=== PATIENT | female | born 1960 | race Asian ===

== ENCOUNTER 2018-07-08 20:19 | Emergency (ER) | payer BC, SELFPAY ==
[2018-07-08 20:20] VITALS: BP 130/71; PULSE 67; RESP 18; TEMP 36.4; O2SAT 98; BMI 25.4
[2018-07-08 22:44] LABS: Absolute Lymphocyte Count 2.21 X10^3/ul (0.83-4.51); Absolute Neutrophil Count 5.9 X10^3/uL (2.0-7.7); Basophil# 0.02 X10^3/uL; Basophil% 0.2 % (0-1); Eosinophil# 0.08 X10^3/uL; Eosinophils% 0.9 % (0-5); Hemoglobin 14.1 g/dl (12.0-15.0); Lymphocyte # 2.21 X10^3/ul (4.0); Lymphocyte % 25.4 % (19-41); Mean Corp Hgb Conc 32.8 g/gl (32-36); Mean Corpuscular Hgb 29.7 pg (27.0-32.0); Mean Corpuscular Volume 90.7 fL (81-99); Mean Platelet Vol. 10.6 fl (6.2-12.0); Monocyte% 5.7 % (0-10); Neutrophil # 5.88 X10^3/uL (2.7-7.7); Neutrophil % 67.7 % (47-70); Platelet Count 247 K/mm3 (150-450); RBC Distribution Width SD 42.9 fl (35.1-43.9); Red Blood Count 4.74 M/mm3 (4.2-5.4); White Blood Count 8.7 K/mm3 (4.4-11.0)
[2018-07-08 22:45] LABS: POSITIVE COUNT NO; POSITIVE DIFFERENTIAL NO; POSITIVE MORPHOLOGY NO
[2018-07-08 22:57] LABS: Anion Gap 4 (5-15); BUN 9 mg/dL (7-18); BUN/Creat Ratio 10.6 RATIO (10-20); Calcium,Total 8.9 mg/dL (8.5-10.1); Chloride 105 mmol/L (98-107); Creatinine, Serum 0.85 mg/dL (0.55-1.02); EST Glomerular Filtration Rate 73 mL/min (>60); Est Glom Filt Rate - Afr Amer 88 mL/min (>60); Estimated Creatinine Clearance 64.24 ml/min; Glucose 122 mg/dL (74-106); Potassium 3.7 mmol/L (3.5-5.1); Sodium Level 138 mmol/L (136-145)
[2018-07-08 23:23] VITALS: BP 127/66; PULSE 61; RESP 20; O2SAT 98
[2018-07-08] MEDS: Ondansetron 4 MG/2 ML Vial IV (23:33)
[2018-07-08] MEDS: 0.9% Normal Saline 1,000 ML 999 ML IV (23:33)
[2018-07-09 00:09] LABS: Lipase 157 U/L (73-393)
[2018-07-09 00:13] LABS: AST(SGOT) 26 U/L (15-37); Alanine Aminotransfer ALT/SGPT 34 U/L (13-56); Albumin, Serum 4.3 g/dL (3.2-5.0); Alkaline Phosphatase 97 U/L (45-117); Bilirubin, Direct 0.18 mg/dL (0.00-0.30); Protein, Total 9.3 g/dL (6.4-8.2)
--- NOTE | 2018-07-09 00:23 | ED.DCSUM_ITS ---
- ER Visit Summary Date of Service: 07/09/18 Chief Complaint: Nausea and vomiting History of Present Illness: The patient is a 57 F who presents with nausea vomiting. Began last night. She vomited 3 times last evening. She began to vomit again this afternoon. She went to urgent care and was advised to be evaluated here in the emergency department. She complains of mild upper abdominal pain. No diarrhea. No fevers. Physical Examination: Afebrile vitals unremarkable No distress resting comfortably Moist mucous membranes Heart regular rate and rhythm Lungs are clear Abdomen soft nontender no guarding no rebound Alert Test Results: Labs unremarkable including CBC BMP hepatic function lipase. Emergency Department Course and Treatment: Laboratory studies unremarkable as above. She was treated here with IV fluids and Zofran. Resting comfortably on reevaluation. No further vomiting. She was given a referral to establish a primary care physician and also given a prescription for Zofran. She understands to return for new or worsening symptoms. Treatment Plan: [] Disposition: Discharge Impression: Vomiting This note was generated with [employer] dictation software. It may contain incorrect words, spelling, and punctuation that were not noted in review of the chart prior to signing ED Disposition - Plan for ED Patient: Referrals: Care Physician,No Primary [Primary Care Provider] -
--- NOTE | 2018-07-09 00:23 | ED.DEP ---
ED Disposition - Plan for ED Patient: Instructions: ED Nausea Vomiting Prescriptions: Ondansetron [Zofran Odt] 4 mg PO Q8H PRN PRN #10 tab PRN Reason: Nausea Referrals: Care Physician,No Primary [Primary Care Provider] - Jose Diamond MD [STAFF PHYSICIAN] -
[2018-07-09 00:34] VITALS: BP 96/54; PULSE 63; O2SAT 100
--- NOTE | 2018-07-09 00:36 | ED.RN ---
patient does not report any dizziness on standing. Her discharge BP was 96/54.
--- NOTE | 2018-07-09 00:41 | ED.RN ---
DR. FLOYD IS AWARE OF PATIENT'S BP OF 96/54 ON DISCHARGE WITHOUT ANY SYMPTOMS SO SHE IS FINE TO BE DISCHARGED.
== END 2018-07-09 00:42 | disposition home or self-care (01) ==
PROVIDERS: Emergency Provider Emergency Medicine
DX: R11.2 Nausea with vomiting, unspecified (principal)
CPT/HCPCS: 80048; 80076; 83690; 85025; 96361; 96374; 99283; J7030; A4216; J2405

== ENCOUNTER 2021-11-19 20:56 | Emergency (ER) | payer BC, SELFPAY ==
[2021-11-19 20:57] VITALS: BP 131/73; PULSE 92; RESP 18; TEMP 37.2; O2SAT 100; BMI 24.2
--- NOTE | 2021-11-19 23:38 | EDS_ITS ---
HPI History of Present Illness Chief Complaint: General Illness Informant: patient and family Narrative Narrative: Sent here in here by oncologist Dr. Damon for evaluation. Family is present. Patient history of breast cancer on chemotherapy. She had a fourth round of treatment November 03. Next treatment upcoming week. The week after this past treatment increasing swelling dry skin and peeling that cantu. There is swelling around the face also. She had this similar up with her third treatment however is less significant. No tongue swelling no trouble swallowing. No fevers. The last time used topical steroids that helped her symptoms and seen by her oncologist prior to her fourth treatment. She denies any other new medications. She is a diabetic. Glucose well controlled. Prior similar symptoms: Yes [facility] Medical History (Updated 11/19/21 @ 23:[address] Tim Islas DO) Breast cancer Home Medications ondansetron 4 mg disintegrating tablet 4 mg PO Q8H PRN PRN Nausea #10 tabs 07/09/18 [Rx Last Taken Unknown] prednisone 20 mg tablet 40 mg PO DAILY #14 tabs 11/19/21 [Rx Last Taken Unknown] prednisone 20 mg tablet 40 mg PO DAILY #14 tabs 11/19/21 [Rx Last Taken Unknown] prednisone 20 mg tablet 40 mg PO DAILY #14 tabs 11/20/21 [Rx Last Taken Unknown] Allergy/AdvReac Type Severity Reaction Status Date / Time No Known Allergies Allergy Verified 11/19/21 20:58 Social History Smoking Status: Never smoker [facility] ED Constitutional Constitutional ED: Denies chills, fever(s) or sweats Eyes Eyes: Denies change in vision ENT ENT ED: Denies dysphagia or sore throat Cardiovascular Cardiovascular: Denies chest pain, leg edema, palpitations or racing heartbeat Respiratory/Chest Respiratory/Chest: Denies cough, dyspnea or dyspnea on exertion Gastrointestinal Gastrointestinal: Denies abdominal pain, diarrhea, nausea or vomiting Genitourinary Genitourinary ED: Denies dysuria, hematuria or urinary frequency Musculoskeletal Musculoskeletal: Denies back pain, extremity pain or neck pain Integumentary Reports other Details: Swelling and cracking of skin of arms face and feet. ; Denies rash or wounds Neurologic Neurologic: Denies headache(s), paresthesias or weakness EXAM Physical Exam Const Vital Signs: 11/19/21 20:57 Temperature 99 F Temperature Source Temporal Pulse Rate 92 Respiratory Rate 18 Blood Pressure 131/73 H Blood Pressure Mean 92 Pulse Ox 100 Oxygen Delivery Method Room Air Positive well nourished and well developed General Appearance ED: well developed and NAD HEENT Reports moist mucous membranes HEENT Narrative: There is facial swelling the maxillary area, there is dry skin with peeling. There is no erythema. No oral mucosal lesions. Airway patent. No lip or tongue swelling. normocephalic and atraumatic Eyes PERRL, EOMs intact bilaterally and conjunctivae normal Eyes Narrative: No erythema of the sclera. General Eye ED: Yes normal appearance of both eyes Neck no lymphadenopathy and supple General: Negative for tenderness Chest Wall Chest: Negative for tenderness Resp normal respiratory effort and normal air movement Effort and Inspection: symmetric chest movement; Negative for respiratory distress Cardio regular rate, regular rhythm and no murmurs Peripheral Pulses: pulses 2+ throughout GI normal to inspection, nondistended, normoactive bowel sounds and non-tender Palpation: Negative for guarding or rebound tenderness present Back/Spine no CVA tenderness and no thoracic nor lumbar tenderness Extremity normal to inspection General Extremety ED: Negative for edema or tenderness General Extremity: Negative for edema Neuro oriented x3 and no sensory deficits noted Sensorium / Orientation: awake and alert Skin Skin Narrative: Dry scaly skin bilateral hands up to forearms. There is abrasion on the right foot. There is no erythema, nontender. No drainage. MDM MDM MDM Narrative Medical decision making narrative: Patient nontoxic vital signs stable. With her history concerns for side effects of her chemotherapy. There is no signs of anaphylaxis. There is no oral lesions. Blood glucose 104. I discussed with her oncologist Dr. Damon, who would like her on oral steroids. Prescription for 7 days. Family updated. They will keep their follow-up as an outpatient. All questions were answered. Discharge Plan Triage Chief Complaint: General Illness ED Provider: Tim Islas Dx/Rx/DC Orders Clinical Impression: Dermatitis, Chemotherapy adverse reaction, History of breast cancer, History of diabetes mellitus Prescriptions: New prednisone 20 mg tablet 40 mg PO DAILY Qty: 14 0RF prednisone 20 mg tablet 40 mg PO DAILY Qty: 14 0RF prednisone 20 mg tablet 40 mg PO DAILY Qty: 14 0RF No Action ondansetron 4 MG tablet 4 mg PO Q8H PRN PRN (Reason: Nausea) Qty: 10 0RF Primary Care Provider: Mariya Penn Referrals: Mariya Penn MD [Primary Care Provider] - Jovan Damon MD [Med Staff - Active Staff] - Keep Mitchell appointment Activity Restrictions/Additional Instructions: Take steroid as prescribed. Your glucose will be elevated secondary to this. Blood glucose in the ED is 104. Continue lotions for dry skin. Follow-up with Dr. Damon as scheduled. Disposition Disposition: Home, Self Care Discharge Date/Time: 11/20/21 00:33
== END 2021-11-20 00:33 | disposition home or self-care (01) ==
PROVIDERS: Emergency Provider Emergency Medicine; PCP Internal Medicine; Visit Provider Emergency Medicine
DX: L27.0 Generalized skin eruption due to drugs and medicaments taken internally (principal); C50.919 Malignant neoplasm of unspecified site of unspecified female breast; E11.9 Type 2 diabetes mellitus without complications; T45.1X5A Adverse effect of antineoplastic and immunosuppressive drugs, initial encounter; Z79.899 Other long term (current) drug therapy
CPT/HCPCS: 99282

== ENCOUNTER 2021-12-08 11:15 | Inpatient (IN) | payer BC, SELFPAY ==
[2021-12-08 11:17] VITALS: BP 123/75; PULSE 85; RESP 17; TEMP 37.1; O2SAT 100; BMI 23.3
--- NOTE | 2021-12-08 11:47 | EDS_ITS ---
HPI <BRYCE Lim - Last Filed: 12/08/21 13:53> History of Present Illness Chief Complaint: Nausea/Vomiting Narrative Narrative: 61-year-old female with history of metastatic right-sided breast cancer currently receiving chemotherapy, last dose of chemotherapy was November 24, 2021. Patient after receiving chemotherapy has redness of the hands, face, sloughing off of skin looking almost like a burn. Patient was seen here October 09 after chemotherapy and was placed on prednisone and sent home to follow-up with Dr. Shea her oncologist. Patient had similar issues after this last chemotherapy, patient has redness to the face, neck has having chills, she did see her oncologist for this, this was 2 days ago and she was placed on doxycycline as well as eyedrops. She was post to have a follow-up appointment today however due to the increased redness, drainage from the right side of her neck, worsening skin redness, worsening eye pain, redness to her eyes she was told to come to the emergency department for evaluation. Patient has no fevers however does have chills, also complains of full body itching. The patient is concerned that the oral antibiotics are not working. [facility] <BRYCE Lim - Last Filed: 12/08/21 13:53> [facility] Medical History (Updated 12/08/21 @ 14:[address] Héctor Oliveira MD) Breast cancer Home Medications doxycycline hyclate 100 mg capsule 100 mg PO BID 12/08/21 [History Last Taken 12/08/21] metformin 500 mg tablet,extended release 24 hr 500 mg PO DAILY dm 12/08/21 [History Last Taken 12/08/21] polymyxin B sulfate 10,000 unit-trimethoprim 1 mg/mL eye drops 1 drp EACH EYE 4X/DAY 12/08/21 [History Last Taken 12/08/21] potassium chloride 20 mEq tablet,extended release(part/cryst) (Klor-Con M) 20 meq PO DAILY supplement 12/08/21 [History Last Taken 12/07/21] tramadol 50 mg tablet 50 mg PO BID PRN Pain 12/08/21 [History Last Taken 12/07/21] Allergy/AdvReac Type Severity Reaction Status Date / Time No Known Allergies Allergy Verified 12/08/21 11:17 Social History Smoking Status: Never smoker ROS <BRYCE Lim - Last Filed: 12/08/21 13:53> ROS ED ROS Narrative Constitutional: Negative for fever, weight loss, weakness. Positive for chills Eyes: Negative for vision loss, vision change, double vision. Positive for eye swelling, eye redness ENT: Negative for any ear pain, congestion. Positive for throat pain Cardiovascular: Negative for any chest pain, tightness, palpitations Respiratory: Negative for any cough, sputum production, hemoptysis, dyspnea, dyspnea on exertion, orthopnea Gastrointestinal: Negative for any abdominal pain, vomiting, diarrhea, constipation, blood in stool, blood in vomit. Positive for nausea : Negative for any urinary frequency, dysuria, retention, blood in urine Muscle skeletal: Negative for any muscle joint pain, stiffness, myalgias, arthralgias, neck pain, back pain Neurological: Negative for any headache, syncope, numbness or tingling, dizziness Skin: Negative for any lumps, itching, abrasions, lacerations. Positive for redness to the face, redness to the neck, skin peeling to bilateral hands Psychiatric: Negative for any depression, anxiety, stress, suicidal ideation, homicidal ideation Hematologic: Negative for any easy bruising, excessive bruising, easy bleeding Allergies: Negative for any eczema, hives, rash EXAM <BRYCE Lim - Last Filed: 12/08/21 13:53> Physical Exam Narrative Exam Narrative: Vital signs reviewed. Patient alert orient x4 HEET: Head normocephalic atraumatic, TMs clear bilaterally. Posterior pharynx is clear, moist mucous membranes. Nares clear bilaterally. Pupils are equal round react to light, conjunctiva are injected, erythemic, small lesion to the left eyelid Neck: The anterior neck is red, there is abrasion to the right side of her neck, this is what being treated for cellulitis, it is red, no abscess formation. No signs of meningismus, negative jolt sign. Cardiac: Regular rate and rhythm no murmurs gallops or rubs, equal peripheral pulses bilaterally. Respiratory: Lungs clear to auscultation bilaterally. No chest tenderness. Abdomen: Soft, nontender, nondistended. No abdominal bruit or pulsatile masses. No hepatosplenomegaly Extremities: No peripheral edema, no signs of gross trauma or deformity. Active full range of motion of all extremities. Patient has some skin peeling to bilateral hands which has been ongoing for several weeks Neuro: Cranial nerves II through XII intact, no focal neurological deficits. Skin: Clean dry and intact with no rash, purpura, petechiae, vesicles or pustules. Backs/flank: No CVA tenderness, no midline spinal tenderness, no deformity. Psych: Normal mood and affect. No SI, HI or acute psychosis. Const Vital Signs: 12/08/21 11:17 Temperature 98.8 F Temperature Source Oral Pulse Rate 85 Respiratory Rate 17 Blood Pressure 123/75 H Blood Pressure Mean 91 Pulse Ox 100 Oxygen Delivery Method Room Air <Dr. Héctor Oliveira MD - Last Filed: 12/08/21 14:02> Physical Exam Const Vital Signs: 12/08/21 11:17 Temperature 98.8 F Temperature Source Oral Pulse Rate 85 Respiratory Rate 17 Blood Pressure 123/75 H Blood Pressure Mean 91 Pulse Ox 100 Oxygen Delivery Method Room Air MDM <BRYCE Lim - Last Filed: 12/08/21 13:53> MDM Lab Data Labs: Laboratory Results - last 24 hr 12/08/21 12/08/21 12/08/21 11:57 11:57 11:57 WBC 20.6 H RBC 3.23 L Hgb 10.5 L Hct 31.2 L MCV 96.6 MCH 32.5 H MCHC 33.7 RDW Std Deviation 55.9 H RDW Coeff of Sanam 15.9 H Plt Count 178 MPV 10.2 Immature Gran % (Auto) 2.600 H Neut % (Auto) 85.6 H Lymph % (Auto) 7.2 L [place] % (Auto) 4.1 Eos % (Auto) 0.1 Baso % (Auto) 0.4 Absolute Neuts (auto) 17.6 H Absolute Lymphs (auto) 1.49 Nucleated RBC % 0.1 Sodium 134 L Potassium 2.6 L* Chloride 95 L Carbon Dioxide 25.0 Anion Gap 14 BUN 5 L Creatinine 0.57 Estim Creat Clear Calc 83.57 Est GFR (MDRD) Af Amer 137 Est GFR (MDRD) Non-Af 113 BUN/Creatinine Ratio 8.7 L Glucose 132 H Lactic Acid 1.0 Calcium 8.3 L Cortisol 12/08/21 12:10 WBC RBC Hgb Hct MCV MCH MCHC RDW Std Deviation RDW Coeff of Sanam Plt Count MPV Immature Gran % (Auto) Neut % (Auto) Lymph % (Auto) [place] % (Auto) Eos % (Auto) Baso % (Auto) Absolute Neuts (auto) Absolute Lymphs (auto) Nucleated RBC % Sodium Potassium Chloride Carbon Dioxide Anion Gap BUN Creatinine Estim Creat Clear Calc Est GFR (MDRD) Af Amer Est GFR (MDRD) Non-Af BUN/Creatinine Ratio Glucose Lactic Acid Calcium Cortisol 31.30 H Treatment and Re-Evaluation Narrative: Patient arrives in no respiratory distress, patient does appear slightly uncomfortable secondary to redness to the face, neck, bilateral hands. Patient did receive a septic work-up secondary to chemotherapy for metastatic right- sided breast cancer. She was instructed to come in by Dr. shea, patient CBC shows a leukocytosis of white blood count 20.6, I did contact the patient's oncologist, he does state that this is abnormal, he does give something for the white blood cells to increase however this should have tapered down, and not been this high. Patient was started on Unasyn, vancomycin post blood cultures. Patient will need to be admitted to hospital. Patient did receive septic work-up, again patient's white blood count was elevated 20.6, patient's chemistries show a panic low potassium at 2.6, this will be replaced orally. Patient's cortisol level was 31.3. Patient was started on IV vancomycin, IV Unasyn for her cellulitis. Patient will be admitted to [facility] for [facility]. <Dr. Héctor Oliveira MD - Last Filed: 12/08/21 14:02> [facility] Narrative Medical decision making narrative: I have personally performed a face to face assessment of the patient and have reviewed the NICANOR Note. I performed a substantive portion of the visit including all aspects of the following. My valverde findings include: History is is remarkable for metastatic breast cancer. Patient has had adverse reaction to the chemotherapy. Her last dose of chemotherapy was November 24. She was seen several days ago by Dr. Jovan Shea who prescribed doxycycline for cellulitis of the face and neck. In spite of 2 days of doxycycline she has not gotten better. She does report chills. She denies documented fever. There is been no change in voice. There is no drooling. She also has rash on her hands and feet. There was no concern for infection. Family and Dr. Shea were concerned because of significant facial swelling. She has been on steroids recently. There is no history of Ceasar's disease. Exam is patient has shah face appearance. There is skin breakdown with warmth erythema of the face and neck. Trachea is midline. There is no inspiratory str idor. There is no dysphonia. There is no drooling. She has no trismus. Heart is regular without murmur, gallop or rub. Lungs are clear to auscultation. Abdomen is soft nontender. Patient does have rash involving the hands and feet. These do not appear infected. Medical Decision Making sepsis work-up was undertaken for failed outpatient therapy of cellulitis with doxycycline. White count is elevated 20.6 thousand with shift. Electrolyte panel is remarkable for potassium of 2.6. Lactate normal. Cortisol level is 31.3. This is high and may represent Ceasar's disease. Other additions or changes: [None] Lab Data Labs: Laboratory Results - last 24 hr 12/08/21 12/08/21 12/08/21 11:57 11:57 11:57 WBC 20.6 H RBC 3.23 L Hgb 10.5 L Hct 31.2 L MCV 96.6 MCH 32.5 H MCHC 33.7 RDW Std Deviation 55.9 H RDW Coeff of Sanam 15.9 H Plt Count 178 MPV 10.2 Immature Gran % (Auto) 2.600 H Neut % (Auto) 85.6 H Lymph % (Auto) 7.2 L [place] % (Auto) 4.1 Eos % (Auto) 0.1 Baso % (Auto) 0.4 Absolute Neuts (auto) 17.6 H Absolute Lymphs (auto) 1.49 Nucleated RBC % 0.1 Sodium 134 L Potassium 2.6 L* Chloride 95 L Carbon Dioxide 25.0 Anion Gap 14 BUN 5 L Creatinine 0.57 Estim Creat Clear Calc 83.57 Est GFR (MDRD) Af Amer 137 Est GFR (MDRD) Non-Af 113 BUN/Creatinine Ratio 8.7 L Glucose 132 H Lactic Acid 1.0 Calcium 8.3 L Cortisol 12/08/21 12:10 WBC RBC Hgb Hct MCV MCH MCHC RDW Std Deviation RDW Coeff of Sanam Plt Count MPV Immature Gran % (Auto) Neut % (Auto) Lymph % (Auto) [place] % (Auto) Eos % (Auto) Baso % (Auto) Absolute Neuts (auto) Absolute Lymphs (auto) Nucleated RBC % Sodium Potassium Chloride Carbon Dioxide Anion Gap BUN Creatinine Estim Creat Clear Calc Est GFR (MDRD) Af Amer Est GFR (MDRD) Non-Af BUN/Creatinine Ratio Glucose Lactic Acid Calcium Cortisol 31.30 H Discharge Plan Dx/Rx/DC Orders Clinical Impression: Cellulitis diffuse, face, Adverse effect of chemotherapy, Leukocytosis, Malignant neoplasm metastatic to breast, Cellulitis of neck, Elevated cortisol level, Metastatic breast cancer Disposition Disposition: Acute Care Hospital [facility]
[2021-12-08 12:06] LABS: Absolute Lymphocyte Count 1.49 X10^3/uL (0.83-4.51); Absolute Neutrophil Count 17.6 X10^3/uL (2.0-7.7); Basophil# 0.08 X10^3/uL; Basophil% 0.4 % (0-1); Eosinophil# 0.02 X10^3/uL; Eosinophils% 0.1 % (0-5); Hematocrit 31.2 % (37-47); Hemoglobin 10.5 g/dL (12.0-15.0); Lymphocyte # 1.49 X10^3/ul (0.83-4.51); Lymphocyte % 7.2 % (19-41); Mean Corp Hgb Conc 33.7 g/dL (32-36); Mean Corpuscular Hgb 32.5 pg (27.0-32.0); Mean Corpuscular Volume 96.6 fL (81-99); Mean Platelet Vol. 10.2 fl (6.2-12.0); Monocyte# 0.85 X10^3/uL; Monocyte% 4.1 % (0-10); NRBC Flagged by Analyzer 0.1 % (0-5); Neutrophil # 17.62 X10^3/uL (2.7-7.7); Neutrophil % 85.6 % (47-70); Platelet Count 178 K/mm3 (150-450); RBC Distribution Width CV 15.9 % (11.6-14.6); RBC Distribution Width SD 55.9 fl (35.1-43.9); Red Blood Count 3.23 M/mm3 (4.2-5.4); White Blood Count 20.6 K/mm3 (4.4-11.0)
[2021-12-08] MEDS: 0.9% Normal Saline 1,000 ML 500 ML IV (12:11)
[2021-12-08] MEDS: Ondansetron 4 MG/2 ML Vial IV (12:11)
[2021-12-08 12:45] LABS: Anion Gap 14 (5-15); BUN 5 mg/dL (7-18); BUN/Creat Ratio 8.7 RATIO (10-20); Calcium,Total 8.3 mg/dL (8.5-10.1); Chloride 95 mmol/L (98-107); Creatinine, Serum 0.57 mg/dL (0.55-1.02); EST Glomerular Filtration Rate 113 mL/min (>60); Est Glom Filt Rate - Afr Amer 137 mL/min (>60); Estimated Creatinine Clearance 83.57 ml/min; Glucose 132 mg/dL (74-106); Potassium 2.6 mmol/L (3.5-5.1); Sodium Level 134 mmol/L (136-145)
[2021-12-08] MEDS: Potassium Chloride Oral Tablet 20 MEQ 40 MEQ PO (14:05)
--- NOTE | 2021-12-08 14:05 | NURSING ---
116 TOM CELLULITIS NECK, FACE, METS BREAST CA, RT
--- NOTE | 2021-12-08 14:31 | HP.PCM.HOS_ITS ---
HPI - General General Date of Admission: 12/08/21 Date of Service: 12/08/21 Chief Complaint: Nausea, vomiting, chills, mild throat pain. CA breast status post chemo HPI Narrative JASMIN MILLARD, is a 61 F with history of CA right breast, stage III on neoadjuvant chemotherapy, fifth dose came to ED for skin rash of face, hands, itching asso ciated with redness looks like burn. Patient also has numbness and tingling of hand and finger like neuropathic symptoms. Skin reaction started between third and fourth dose of chemotherapy at the end of September as per the daughter. This was controlled with intermittent Solu-Medrol given as an outpatient by oncologist Dr. Damon. Patient also has chills with fever. She vomited 3-4 times mainly gastric type. She does not have difficulty in swallowing food or saliva but he states sometimes she feels heartburn/stinging sensation in throat. His skin over the face is thickened with edema, redness and signs of areas of excoriation and peeling off. She lost here for scalp, eyebrows and eyelashes. There is minimal drainage from the skin excoriation in the upper neck. Patient was started on doxycycline about 2 days ago as an outpatient but seems is not working therefore came to ED. In ED, vitals are normal range. Temperature 98.8 ?F. Labs discussed in detail in assessment plan. She is high leukocytosis with left shift 85% neutrophils. Severe hypokalemia. Serum cortisol 31.3. Past medical history: CLL treated breast, stage III on neoadjuvant chemotherapy, diabetes mellitus type 2. Denies chronic heart disease, chronic lung disease and stroke or peripheral arterial disease. History taken from patient and her daughter Bridget near the bedside. The patient has limited Spanish proficiency [facility] Medical History Breast cancer Home Medications doxycycline hyclate 100 mg capsule 100 mg PO BID 12/08/21 [History Last Taken 12/08/21] metformin 500 mg tablet,extended release 24 hr 500 mg PO DAILY dm 12/08/21 [History Last Taken 12/08/21] polymyxin B sulfate 10,000 unit-trimethoprim 1 mg/mL eye drops 1 drp EACH EYE 4X/DAY 12/08/21 [History Last Taken 12/08/21] potassium chloride 20 mEq tablet,extended release(part/cryst) (Klor-Con M) 20 meq PO DAILY supplement 12/08/21 [History Last Taken 12/07/21] tramadol 50 mg tablet 50 mg PO BID PRN Pain 12/08/21 [History Last Taken 12/07/21] Allergy/AdvReac Type Severity Reaction Status Date / Time No Known Allergies Allergy Verified 12/08/21 11:17 Social History Smoking Status: Never smoker ROS ROS Narrative Constitutional: Reports fatigue and weakness. Chills with fever. HEENT: Heartburn. Burning sensation in throat sometimes. Reports systems reviewed and no addt'l complaints, except as documented Respiratory/Chest: Denies chest pain, shortness of breath at rest or with exertion Gastrointestinal: As mentioned in HPI Genitourinary: Denies burning urination or new urinary tract symptoms Musculoskeletal: Denies joint pain and limited range of motion Neurologic: Numbness and tingling sensation over fingers and toes. No weakness. Denies seizure-like activity skin: Rash as described in HPI Endocrinology: Diabetes mellitus type 2 reports systems reviewed and no addt'l complaints, except as documented Hematologic/Lymphatic: Reports systems reviewed and no addt'l complaints, except as documented Rest 14 ROS are negative except as mentioned in HPI Vital Signs Vital Signs Vital Signs: 12/08/21 11:17 Temperature 98.8 F Temperature Source Oral Pulse Rate 85 Respiratory Rate 17 Blood Pressure 123/75 H Blood Pressure Mean 91 Pulse Ox 100 Oxygen Delivery Method Room Air Weight Weight: 115 lb 8.356 oz Body Mass Index (BMI) 23.3 Physical Exam Narrative General: Alert, Oriented x3, Cooperative HEENT: Atraumatic, PERRLA, EOMI, Normocephalic Oral: No Gingival or Mucosal Lesions/ Ulcerations Neck: Supple, No JVD, Negative Carotid Bruits Lungs: Air entry diminished in bilateral lung bases. No crepitation/rhonchi Cardiovascular: Regular rate, Regular Rhythm, Normal S1, Normal S2, No murmurs Abdomen: Bowel Sounds Present, Soft, Non Tender, Non-Distended : No renal angle tenderness. No suprapubic tenderness. Extremities: No edema, Capillary Refill Less than 3 Seconds Skin: Maculopapular lesions on face, neck with thickened skin with accentuated fissures, subcutaneous edema and excoriation suggestive of lichenification, suggestive of secondary bacterial infection on chronic inflammation. Excoriation of his skin with minimal serous discharge. Alopecia with loss of hair of eyelashes and eyebrows. Musculoskeletal: No Tenderness to Palpation of Joints or Extremities Neurological: Cranial nerves II-XII grossly intact, neuropathic pain/paresthesia of legs. Psych/Mental Status: Flat affect. Results Lab / Micro Data Result Diagrams: 12/08/21 11:57 12/08/21 11:57 Labs: Laboratory Results - last 24 hr 12/08/21 11:57: WBC 20.6 H, RBC 3.23 L, Hgb 10.5 L, Hct 31.2 L, MCV 96.6, MCH 32.5 H, MCHC 33.7, RDW Std Deviation 55.9 H, RDW Coeff of Sanam 15.9 H, Plt Count 178, MPV 10.2, Immature Gran % (Auto) 2.600 H, Neut % (Auto) 85.6 H, Lymph % (Auto) 7.2 L, [place] % (Auto) 4.1, Eos % (Auto) 0.1, Baso % (Auto) 0.4, Absolute Neuts (auto) 17.6 H, Absolute Lymphs (auto) 1.49, Nucleated RBC % 0.1 12/08/21 11:57: Sodium 134 L, Potassium 2.6 L*, Chloride 95 L, Carbon Dioxide 25.0, Anion Gap 14, BUN 5 L, Creatinine 0.57, Estim Creat Clear Calc 83.57, Est GFR (MDRD) Af Amer 137, Est GFR (MDRD) Non-Af 113, BUN/Creatinine Ratio 8.7 L, Glucose 132 H, Calcium 8.3 L 12/08/21 11:57: Lactic Acid 1.0 12/08/21 12:10: Cortisol 31.30 H Assessment & Plan Assessment/Plan (1) Cellulitis diffuse, face: (2) Adverse effect of chemotherapy: PLAN: Plan This 61-year-old female admitted for the concern of worsening of skin rash with secondary bacterial infection. 1. Complicated skin and soft tissue infection of face, neck and upper extremity due to secondary bacterial infection/cellulitis: Patient is being admitted on monitored bed. Started on IV vancomycin and Zosyn. MRSA skin culture. Blood cultures x2 ordered. ID consulted for further opinion. 2. Chemotherapeutic skin, mucositis and neuropathic adverse effect after neoadjuvant chemotherapy: Morphology of rash like lichenification, excoriation and peeling off seems chronic more than 1 month. Daughter also corroborates that rash started at the end of September with getting better with steroid but did not get resolved completely. Started on IV Solu-Medrol 40 mg every 8 hourly. BMX for symptomatic relief. 3. GERD probably due to chemotherapeutic side effect: Protonix 40 mg IV 1 dose and then oral from tomorrow AM. 4. Hypovolemia/dehydration, severe hypokalemia and hypomagnesemia: IV fluid normal saline. IV KCl and IV magnesium sulfate replacement ordered. 5. Locally advanced right CA breast, stage III: I personally discussed with patient is oncologist Dr Damon. She has fifth round of chemotherapy on November 24. She had Perjeta and Taxotere recently. Prior to that she had carboplatin but was discontinued due to severe skin adverse effect. This chemotherapeutic agents are known to have adverse effect of dermatitis, rash, neuropathic adverse effect. 6. Diabetes mellitus type 2: Accu-Chek ACH coverage Humalog sliding scale. Patient glucose is expected to go up on IV Solu-Medrol. Titrate Dose of Insulin Accordingly. DVT prophylaxis: Lovenox 40 mg subcu daily and bilateral SCDs Living will/advanced directive/end of life care: Patient does have living will or advanced directive as per the daughter. She is next to kin. After discussion of benefits/risks procedures involved with full code, DNR CC arrest and DNR CC, the patient and her daughter opted for full code. Patient and her daughter does want artificial life support including intubation, tube feed, ventilator and/chest compression, central venous catheter, vasopressor and DC shock if needed Total time spent in [id number] encounter in discussion of advanced directive 16 minutes.
[2021-12-08 14:46] LABS: AST(SGOT) 33 U/L (15-37); Alanine Aminotransfer ALT/SGPT 41 U/L (13-56); Albumin, Serum 3.2 g/dL (3.2-5.0); Alkaline Phosphatase 116 U/L (45-117); Bilirubin, Direct 0.27 mg/dL (0.00-0.30); Globulin 3.2 g/dL (2.2-4.2); Phosphorus 3.1 mg/dL (2.5-4.9); Protein, Total 6.4 g/dL (6.4-8.2)
[2021-12-08 15:19] VITALS: BMI 23.4
--- NOTE | 2021-12-08 15:36 | PCM.RX.CS ---
Consult Pharmacy has been consulted to manage selected antiobiotic: Vancomycin Type of Consult: New start Suspected Infection: Skin/Soft tissue Prior Doses of Antibiotics Received/Current Regimen: Receivd 1250mg iv x 1 as loading dose in ER. Labs: Sodium 134 mmol/L (136-145) L 12/08/21 11:57 Potassium 2.6 mmol/L (3.5-5.1) L* 12/08/21 11:57 Chloride 95 mmol/L (98-107) L 12/08/21 11:57 Carbon Dioxide 25.0 mmol/L (21.0-32.0) 12/08/21 11:57 Anion Gap 14 (5-15) 12/08/21 11:57 BUN 5 mg/dL (7-18) L 12/08/21 11:57 Creatinine 0.57 mg/dL (0.55-1.02) 12/08/21 11:57 Est GFR (MDRD) Af Amer 137 mL/min (>60) 12/08/21 11:57 Est GFR (MDRD) Non-Af 113 mL/min (>60) 12/08/21 11:57 BUN/Creatinine Ratio 8.7 RATIO (10-20) L 12/08/21 11:57 Glucose 132 mg/dL (74-106) H 12/08/21 11:57 Weight used for dosin.6 kg Estimated Creatinine Clearance: 71 ml/min Goal Trough: 15-20 mcg/mL Pharmacy Plan for Drug Dosing: A calculated CrCl determined to be ~71ml/min using adjusted body weight of 46.7kg. Dosing of 750mg iv q12h will be ordered to start 12hrs after loading dose. Trough level ordered for before 4th total dose on 12.10.21. Pharmacy Service will continue to monitor and adjust dosing as required. Follow-Up Labs: Trough Vancomycin - 12.10.21@0130 before 0200 dose
[2021-12-08] MEDS: Magnesium Sulfate 4gm/100mL 4 GM/100 ML IV.SOLN. IV (16:23)
[2021-12-08 16:30] VITALS: BP 108/56; PULSE 84; RESP 18; TEMP 37.6; O2SAT 97
[2021-12-08] MEDS: Menthol/Lanolin/Calamine/Znox 113 GM Tube 1 APPLIC TOPICAL ×2 (16:46→21:49)
[2021-12-08] MEDS: Enoxaparin 40 MG/0.4 ML Syringe SC (16:46)
[2021-12-08] MEDS: 0.9% Saline Lock 10 ML Syringe IV ×2 (16:47→22:48)
[2021-12-08 17:45] LABS: Bedside Glucose 99 mg/dL (74-106)
[2021-12-08] MEDS: Potassium Chloride 10mEq/100mL 10 MEQ/100 ML IV.SOLN. 100 MEQ IV BOLUS ×4 (18:02→21:41)
[2021-12-08 19:26] LABS: M R Staph aureus DNA By PCR Negative (Negative); Probe Check PASS; Specimen Processing Control PASS; Staph aureus DNA By PCR POSITIVE (Negative)
[2021-12-08] MEDS: oxyCODONE 5 MG Tablet PO (19:34)
[2021-12-08 19:50] LABS: M R Staph aureus DNA By PCR Negative (Negative); Probe Check PASS; Specimen Processing Control PASS
[2021-12-08 21:33] VITALS: BP 104/54; PULSE 76; RESP 18; TEMP 36.8; O2SAT 99
[2021-12-08] MEDS: POLYMYXIN B SULF/TRIMETHOPRIM 10 ML DROPS OPHTHALMIC (21:48)
[2021-12-08 22:20] LABS: Bedside Glucose 156 mg/dL (74-106)
[2021-12-08] MEDS: 0.9% Normal Saline 1,000 ML 100 ML IV (22:52)
[2021-12-09 03:16] VITALS: BP 91/60; PULSE 69; RESP 20; TEMP 36.6; O2SAT 98
[2021-12-09 05:50] LABS: Absolute Lymphocyte Count 1.05 X10^3/uL (0.83-4.51); Basophil# 0.04 X10^3/uL; Basophil% 0.2 % (0-1); Hematocrit 28.1 % (37-47); Hemoglobin 9.5 g/dL (12.0-15.0); Lymphocyte # 1.05 X10^3/ul (0.83-4.51); Lymphocyte % 4.6 % (19-41); Mean Corp Hgb Conc 33.8 g/dL (32-36); Mean Corpuscular Hgb 33.3 pg (27.0-32.0); Mean Corpuscular Volume 98.6 fL (81-99); Mean Platelet Vol. 10.2 fl (6.2-12.0); Monocyte# 0.23 X10^3/uL; NRBC Flagged by Analyzer 0 % (0-5); Neutrophil # 21.03 X10^3/uL (2.7-7.7); Neutrophil % 91.6 % (47-70); POSITIVE DIFFERENTIAL YES; Platelet Count 165 K/mm3 (150-450); RBC Distribution Width CV 16.1 % (11.6-14.6); RBC Distribution Width SD 58.3 fl (35.1-43.9); Red Blood Count 2.85 M/mm3 (4.2-5.4)
[2021-12-09 06:09] LABS: Differential Indicated SCAN CRITERIA MET
[2021-12-09 06:13] VITALS: BP 86/54; PULSE 73; RESP 20; TEMP 36.8; O2SAT 97
[2021-12-09] MEDS: Menthol/Lanolin/Calamine/Znox 113 GM Tube 1 APPLIC TOPICAL ×2 (06:22→14:51)
[2021-12-09 06:24] LABS: Anion Gap 7 (5-15); BUN 3 mg/dL (7-18); BUN/Creat Ratio 5.7 RATIO (10-20); Calcium,Total 6.9 mg/dL (8.5-10.1); Chloride 106 mmol/L (98-107); Creatinine, Serum 0.53 mg/dL (0.55-1.02); EST Glomerular Filtration Rate 125 mL/min (>60); Est Glom Filt Rate - Afr Amer 151 mL/min (>60); Estimated Creatinine Clearance 91.07 ml/min; Glucose 137 mg/dL (74-106); Potassium 3.5 mmol/L (3.5-5.1); Sodium Level 139 mmol/L (136-145); Thyroid Stim Hormone (TSH) 0.66 uIU/mL (0.358-3.74)
[2021-12-09] MEDS: 0.9% Saline Lock 10 ML Syringe IV ×2 (06:24→15:45)
[2021-12-09 06:30] LABS: Differential Comment SCANNED
[2021-12-09 07:15] LABS: Bedside Glucose 126 mg/dL (74-106)
[2021-12-09 07:35] VITALS: BP 92/54; PULSE 77; RESP 16; TEMP 36.6; O2SAT 99
[2021-12-09] MEDS: 0.9% Normal Saline 1,000 ML 100 ML IV (07:36)
[2021-12-09 08:17] VITALS: O2SAT 93
[2021-12-09] MEDS: Enoxaparin 40 MG/0.4 ML Syringe SC (09:22)
[2021-12-09] MEDS: POLYMYXIN B SULF/TRIMETHOPRIM 10 ML DROPS OPHTHALMIC ×2 (09:23→14:50)
[2021-12-09] MEDS: Pantoprazole Sodium 40 MG Tablet PO (09:23)
[2021-12-09] MEDS: Glucerna Shake 120 ML LIQUID PO (09:56)
--- NOTE | 2021-12-09 10:43 | DCINST_ITS ---
Discharge Instructions Diet Discharge Diet: 1800 Calorie Control Diet Activity Discharge Activity: Return to Normal Activity Weight Bearing Status: Weight bearing as tolerated Dressing / Incision Call your doctor if you observe: Fever of 101 or Higher, Coldness, Increased Pain, Numbness or Tingling, Change in Color, Inability to urinate, Inability to have a bowel movement, Using more than 1 pad per hour, Shortness of breath, Dizziness, Fainting spells, Swelling in the ankles, Chest pain, Prolonged hiccupping, Increased palpitations (irregular heartbeat), Calf discomfort and Uncontrolled pain Follow Up Care Test Results: Test results from this visit will be discussed in further detail at your follow- up appointment, if applicable. Discharge Plan Admission Admit Date/Time: 12/08/21 13:44 Primary Reason for Your Visit: Dermatitis due to chemotherapy with secondary bacterial infection Attending Provider: Joshua La Primary Care Provider: Mariya Penn Consulting Providers: Jimmie Mendez Discharge Orders/Prescriptions Prescriptions: New lidocaine HCl [Lidocaine Viscous] 2 % Solution 10 ml PO Q3H PRN PRN (Reason: throat pain/mucositis) Qty: 100 2RF cephalexin 500 mg tablet 500 mg PO Q8H 7 Days Qty: 21 0RF methylprednisolone 4 mg tablets,dose pack See Rx Instructions .ROUTE .COMPLEX 6 Days Qty: 21 0RF Rx Instructions: Please see dose package instruction. Use as instructed. Continued potassium chloride [Klor-Con M20] 20 mEq tablet,ER particles/crystals 20 meq PO DAILY polymyxin B sulf-trimethoprim 10,000 unit- 1 mg/mL drops 1 drp EACH EYE 4X/DAY Label Comments: instill 1 drop into both eyes four times a day tramadol 50 mg tablet 50 mg PO BID PRN (Reason: Pain) Label Comments: TAKE 1 TABLET BY MOUTH TWICE DAILY NEEDED FOR PAIN FOR UP TO 10 DAYS. metformin 500 mg tablet extended release 24 hr 500 mg PO DAILY Label Comments: TAKE 1 TABLET BY MOUTH EVERY DAY WITH BREAKFAST Discontinued doxycycline hyclate 100 mg capsule 100 mg PO BID Referrals / Follow Up: Mariya Penn MD [Primary Care Provider] - Disposition Disposition (needs filled in before D/C Order can be placed): Home, Self Care
[2021-12-09 11:15] VITALS: BP 92/57; PULSE 76; RESP 16; TEMP 36.8; O2SAT 100
[2021-12-09 11:40] LABS: Bedside Glucose 213 mg/dL (74-106)
--- NOTE | 2021-12-09 11:50 | CASEMGMT ---
YAMILETH ORTEGA ASSISTANT PRESS OPERATOR OFFSET CM to room to meet with patient for initial transition planning/care coordination assessment. YAMILETH ORTEGA introduced self and role at [facility].? Pt resting in bed in no distress at this time.?Per dtr, Marian, who is at bedside, pt's primary language is Geoffrey. She states she can speak some Amharic, but is limited. YAMILETH ORTEGA did ask pt some questions during assessment, but she would turn and look at her dtr and refer to her to answer. Most of the following information obtained from dtr. Care providers, pharmacy, and demographics verified/updated at this time. PCP: Dr Penn Specialists:Dr Damon-oncology, Dr Tee-spotter driver @ [facility], Dr Matt--breast surgeon @ [facility] Preferred Pharmacy: [facility] Antonino Insurance: [place] Prescription Benefit:?Yes Living Will/HPOA:?Has LW and HPOA, who is her dtr, Marian LNOK: Dtr, Marian Living Arrangements: Lives w/dtr, Marian, and 2 grandchildren. They live in a split-level home w/6-8 steps to enter. Pt does okay w/the stairs. She is independent w/ADL's and IADL's. Dtr can assist if needed. Transportation: dtr DME: Pt has a glucometer. Uses no DME to ambulate HHC/SNF: No hx of either. No needs identified. Pt and dtr wish for pt to return home and state no concerns with going home at time of discharge.? CM to follow for any discharge planning/needs.? Pt and dtr voice no further concerns/needs at this time.? Advised them to ask for CM if any further questions/concerns/needs arise.? They voice understanding. PLAN:??Home Ganga AVITIA RN, CM
--- NOTE | 2021-12-09 14:11 | PCM.CONS.GEN ---
Assessment & Plan Assessment/Plan (1) Cellulitis diffuse, face: PLAN: Wound pcr with mssa. On vanc/zosyn here. Ok for home with po keflex 500mg tid for one week to see if this helps. Will follow, thank you, d/w primary team (2) Adverse effect of chemotherapy: HPI Consult Data Date of Consult: 12/09/21 HPI Narrative Reason for Consultation: cellulitis HPI Narrative: JSAMIN MILLARD, is a 61 F with breast cancer, on neoadjuvant chemo, presented 12/08 with progressive pain, redness, and itching on face, hands. No issues with port. Had some chills. Started on doxy 12/06 but caused some n/v. Came to ED, admitted on vanc/zosyn. Wound pcr swab with mssa. Feeling better, less sore/red/swollen. Full ROS performed and neg except as noted above. COUNT INCLUDES THE [facility] Medical History Breast cancer Home Medications doxycycline hyclate 100 mg capsule 100 mg PO BID 12/08/21 [History Last Taken 12/08/21] metformin 500 mg tablet,extended release 24 hr 500 mg PO DAILY dm 12/08/21 [History Last Taken 12/08/21] polymyxin B sulfate 10,000 unit-trimethoprim 1 mg/mL eye drops 1 drp EACH EYE 4X/DAY 12/08/21 [History Last Taken 12/08/21] potassium chloride 20 mEq tablet,extended release(part/cryst) (Klor-Con M) 20 meq PO DAILY supplement 12/08/21 [History Last Taken 12/07/21] tramadol 50 mg tablet 50 mg PO BID PRN Pain 12/08/21 [History Last Taken 12/07/21] Allergy/AdvReac Type Severity Reaction Status Date / Time No Known Allergies Allergy Verified 12/08/21 11:17 Social History Smoking Status: Never smoker Physical Exam Const alert Constitutional Narrative: ill appearing, uncomfortable General Appearance: cooperative HEENT HEENT Narrative: Face swollen, red, some skin breakdown Eyes PERRL and EOMs intact bilaterally Neck No nodes Resp normal air movement and clear to auscultation bilaterally Cardio regular rate and regular rhythm GI soft to palpation, non-tender and non-distended Extremity General Extremity: Negative for edema Skin Skin Narrative: Face, neck, hands with redness, some skin breakdown, pain. Neuro CN's II-XII intact bilaterally Lab / Micro Data Attestation: I reviewed the patient's lab results. Result Diagrams: 12/09/21 05:45 12/09/21 05:45 Labs: Laboratory Results - last 24 hr 12/08/21 11:57: Phosphorus 3.1, Magnesium 1.0 L, Total Bilirubin 0.70, Direct Bilirubin 0.27, AST 33, ALT 41, Alkaline Phosphatase 116, Total Protein 6.4, Albumin 3.2, Globulin 3.2 12/08/21 17:25: POC Glucose 99 12/08/21 17:50: S.aureus Protein A PCR POSITIVE H, MRSA (PCR) Negative 12/08/21 18:15: MRSA (PCR) Negative 12/08/21 21:36: POC Glucose 156 H 12/09/21 05:45: WBC 23.0 H, RBC 2.85 L, Hgb 9.5 L, Hct 28.1 L, MCV 98.6, MCH 33.3 H, MCHC 33.8, RDW Std Deviation 58.3 H, RDW Coeff of Sanam 16.1 H, Plt Count 165, MPV 10.2, Immature Gran % (Auto) 2.600 H, Neut % (Auto) 91.6 H, Lymph % (Auto) 4.6 L, [place] % (Auto) 1.0, Eos % (Auto) 0.0, Baso % (Auto) 0.2, Absolute Neuts (auto) 21.0 H, Absolute Lymphs (auto) 1.05, Nucleated RBC % 0, Differential Comment SCANNED 12/09/21 05:45: Sodium 139, Potassium 3.5, Chloride 106, Carbon Dioxide 26.0, Anion Gap 7, BUN 3 L, Creatinine 0.53 L, Estim Creat Clear Calc 91.07, Est GFR (MDRD) Af Amer 151, Est GFR (MDRD) Non-Af 125, BUN/Creatinine Ratio 5.7 L, Glucose 137 H, Calcium 6.9 L, TSH 0.66 12/09/21 06:17: POC Glucose 126 H 12/09/21 11:15: POC Glucose 213 H
--- NOTE | 2021-12-09 15:00 | DS.PCM_ITS ---
Providers Date of Admission: 12/08/21 Date of Discharge: 12/09/21 Primary Care Physician: Dr. Mariya Penn MD Consultations 12/08/21 15:05 Consult: Infectious Disease Routine Consulting Provider: Jimmie Mendez Reason for Consult: compliated skin/soft tissue inf after chemo EMERGENT Consult: No MD Notified: Yes Date Notified: 12/08/21 Time Notified: 14:20 Method of Notification: Text Reason For Visit: FACIAL CELLULITIS WITH RASH Diagnosis Discharge Diagnosis (1) Cellulitis diffuse, face: Status: Acute Code(s): L03.211 - Cellulitis of face (2) Adverse effect of chemotherapy: Status: Acute Code(s): T45.1X5A - Adverse effect of antineoplastic and immunosuppressive drugs, initial encounter Medications at Discharge Home Medications metformin 500 mg tablet,extended release 24 hr 500 mg PO DAILY dm 12/08/21 polymyxin B sulfate 10,000 unit-trimethoprim 1 mg/mL eye drops 1 drp EACH EYE 4X/DAY eye health 12/08/21 potassium chloride 20 mEq tablet,extended release(part/cryst) (Klor-Con M) 20 meq PO DAILY supplement 12/08/21 tramadol 50 mg tablet 50 mg PO BID PRN Pain 12/08/21 cephalexin 500 mg tablet 500 mg PO Q8H 7 days #21 tabs 12/09/21 lidocaine HCl 2 % mucosal solution (Lidocaine Viscous) 10 ml PO Q3H PRN PRN throat pain/mucositis #100 mL 12/09/21 methylprednisolone 4 mg tablets in a dose pack See Rx Instructions .Route .COMPLEX 6 days #21 tabs 12/09/21 pantoprazole 40 mg tablet,delayed release (Protonix) 40 mg PO DAILY #30 tabs 12/09/21 Hospital Course Summary of Care Provided Hospital Course: This 61-year-old female admitted for the concern of worsening of skin rash with secondary bacterial infection. 1. Complicated skin and soft tissue infection of face, neck and upper extremity due to secondary bacterial infection/cellulitis: Patient is being admitted on monitored bed. Started on IV vancomycin and Zosyn. ID consulted. 12/09: Discussed with ID. MRSA screen shows MSSA. Discontinue outpatient doxycycline and started on Keflex 500 mg 3 times daily for 7 days as per ID recommendation. Patient discharged on Medrol Dosepak. 2. Chemotherapeutic skin, mucositis and neuropathic adverse effect after neoadjuvant chemotherapy: Morphology of rash like lichenification, excoriation and peeling off seems chronic more than 1 month. Daughter also corroborates that rash started at the end of September with getting better with steroid but did not get resolved completely. Treated with IV Solu-Medrol 40 mg every 8 hourly. BMX for symptomatic relief. 12/09: Prescription given for Medrol Dosepak and BMX solution for symptomatic rel ief. 3. GERD probably due to chemotherapeutic side effect: Protonix 40 mg IV 1 dose and then oral from tomorrow AM. 12/09: Prescription given for Protonix 40 mg daily. 4. Hypovolemia/dehydration, severe hypokalemia and hypomagnesemia: IV fluid normal saline. IV KCl and IV magnesium sulfate replacement ordered. 12/09: Magnesium was replaced. Serum potassium level normal. 5. Locally advanced right CA breast, stage III: I personally discussed with patient is oncologist Dr Damon. She has fifth round of chemotherapy on November 24. She had Perjeta and Taxotere recently. Prior to that she had carboplatin but was discontinued due to severe skin adverse effect. This chemotherapeutic agents are known to have adverse effect of dermatitis, rash, neuropathic adverse effect. I do not think she is appropriate candidate for recent chemotherapy. 6. Diabetes mellitus type 2: Accu-Chek ACH coverage Humalog sliding scale. Patient glucose is expected to go up on IV Solu-Medrol. Titrate Dose of Insulin Accordingly. Continue metformin. Glucose went up in 200s with IV Solu-Medrol. DVT prophylaxis: Lovenox 40 mg subcu daily and bilateral SCDs CODE STATUS full Discharge medication reconciliation done. Discharge follow-up instructions completed. Discharge process discussed with the patient and her daughters and all questions were answered regarding medications, prescriptions and follow-up with Dr. Damon. Total time spent, exact 35 minutes on discharge meds reconciliation, examination, coordination of care with nurses and ancillary staff, review of imaging and blood test and discussion with the patient on follow-up instructions. Laboratory Results 12/08/21 17:25: POC Glucose 99 12/08/21 17:50: S.aureus Protein A PCR POSITIVE H, MRSA (PCR) Negative 12/08/21 18:15: MRSA (PCR) Negative 12/08/21 21:36: POC Glucose 156 H 12/09/21 05:45: WBC 23.0 H, RBC 2.85 L, Hgb 9.5 L, Hct 28.1 L, MCV 98.6, MCH 33.3 H, MCHC 33.8, RDW Std Deviation 58.3 H, RDW Coeff of Sanam 16.1 H, Plt Count 165, MPV 10.2, Immature Gran % (Auto) 2.600 H, Neut % (Auto) 91.6 H, Lymph % (Auto) 4.6 L, [place] % (Auto) 1.0, Eos % (Auto) 0.0, Baso % (Auto) 0.2, Absolute Neuts (auto) 21.0 H, Absolute Lymphs (auto) 1.05, Nucleated RBC % 0, Differential Comment SCANNED 12/09/21 05:45: Sodium 139, Potassium 3.5, Chloride 106, Carbon Dioxide 26.0, Anion Gap 7, BUN 3 L, Creatinine 0.53 L, Estim Creat Clear Calc 91.07, Est GFR (MDRD) Af Amer 151, Est GFR (MDRD) Non-Af 125, BUN/Creatinine Ratio 5.7 L, Glucose 137 H, Calcium 6.9 L, TSH 0.66 12/09/21 06:17: POC Glucose 126 H 12/09/21 11:15: POC Glucose 213 H Physical Exam Narrative Seen and examined on the day of discharge General: Alert, Oriented x3, Cooperative HEENT: Atraumatic, PERRLA, EOMI, Normocephalic Oral: Oral mucosa moist no Gingival or Mucosal Lesions/ Ulcerations Neck: Supple, No JVD, Negative Carotid Bruits Lungs: Air entry diminished in bilateral lung bases. No crepitation/rhonchi Cardiovascular: Regular rate, Regular Rhythm, Normal S1, Normal S2, No murmurs Abdomen: Bowel Sounds Present, Soft, Non Tender, Non-Distended : No renal angle tenderness. No suprapubic tenderness. Extremities: No edema, Capillary Refill Less than 3 Seconds Skin: Skin rash looks better. Maculopapular lesions on face, neck with thickened skin with accentuated fissures, subcutaneous edema and excoriation suggestive of lichenification. There is excoriation of the skin on the neck crease. Alopecia with loss of hair of eyelashes and eyebrows. Musculoskeletal: No Tenderness to Palpation of Joints or Extremities Neurological: Cranial nerves II-XII grossly intact, neuropathic pain/paresthesia of legs. Psych/Mental Status: Flat affect. Weight / BMI Weight Weight: 117 lb 1.047 oz Body Mass Index (BMI) 23.4 ABG / Lab / Microbiology Data Result Diagrams: 12/09/21 05:45 12/09/21 05:45 Laboratory: Laboratory Results - last 24 hr 12/08/21 11:57: WBC 20.6 H, RBC 3.23 L, Hgb 10.5 L, Hct 31.2 L, MCV 96.6, MCH 32.5 H, MCHC 33.7, RDW Std Deviation 55.9 H, RDW Coeff of Sanam 15.9 H, Plt Count 178, MPV 10.2, Immature Gran % (Auto) 2.600 H, Neut % (Auto) 85.6 H, Lymph % (Auto) 7.2 L, [place] % (Auto) 4.1, Eos % (Auto) 0.1, Baso % (Auto) 0.4, Absolute Neuts (auto) 17.6 H, Absolute Lymphs (auto) 1.49, Nucleated RBC % 0.1 12/08/21 11:57: Sodium 134 L, Potassium 2.6 L*, Chloride 95 L, Carbon Dioxide 25.0, Anion Gap 14, BUN 5 L, Creatinine 0.57, Estim Creat Clear Calc 83.57, Est GFR (MDRD) Af Amer 137, Est GFR (MDRD) Non-Af 113, BUN/Creatinine Ratio 8.7 L, Glucose 132 H, Calcium 8.3 L 12/08/21 11:57: Lactic Acid 1.0 12/08/21 11:57: Phosphorus 3.1, Magnesium 1.0 L, Total Bilirubin 0.70, Direct Bilirubin 0.27, AST 33, ALT 41, Alkaline Phosphatase 116, Total Protein 6.4, Albumin 3.2, Globulin 3.2 12/08/21 12:10: Cortisol 31.30 H 12/08/21 17:25: POC Glucose 99 12/08/21 17:50: S.aureus Protein A PCR POSITIVE H, MRSA (PCR) Negative 12/08/21 18:15: MRSA (PCR) Negative 12/08/21 21:36: POC Glucose 156 H 12/09/21 05:45: WBC 23.0 H, RBC 2.85 L, Hgb 9.5 L, Hct 28.1 L, MCV 98.6, MCH 33.3 H, MCHC 33.8, RDW Std Deviation 58.3 H, RDW Coeff of Sanam 16.1 H, Plt Count 165, MPV 10.2, Immature Gran % (Auto) 2.600 H, Neut % (Auto) 91.6 H, Lymph % (Auto) 4.6 L, [place] % (Auto) 1.0, Eos % (Auto) 0.0, Baso % (Auto) 0.2, Absolute Neuts (auto) 21.0 H, Absolute Lymphs (auto) 1.05, Nucleated RBC % 0, Differential Comment SCANNED 12/09/21 05:45: Sodium 139, Potassium 3.5, Chloride 106, Carbon Dioxide 26.0, Anion Gap 7, BUN 3 L, Creatinine 0.53 L, Estim Creat Clear Calc 91.07, Est GFR (MDRD) Af Amer 151, Est GFR (MDRD) Non-Af 125, BUN/Creatinine Ratio 5.7 L, Glucose 137 H, Calcium 6.9 L, TSH 0.66 12/09/21 06:17: POC Glucose 126 H Meaningful Use Info Meaningful Use Diagnoses (Choose all that apply): None applicable Discharge Plan Admission Admit Date/Time: 12/08/21 13:44 Primary Reason for Your Visit: Dermatitis due to chemotherapy with secondary bacterial infection Attending Provider: Joshua La Primary Care Provider: Mariya Penn Consulting Providers: Jimmie Mendez Discharge Orders/Prescriptions Prescriptions: New lidocaine HCl [Lidocaine Viscous] 2 % Solution 10 ml PO Q3H PRN PRN (Reason: throat pain/mucositis) Qty: 100 2RF cephalexin 500 mg tablet 500 mg PO Q8H 7 Days Qty: 21 0RF methylprednisolone 4 mg tablets,dose pack See Rx Instructions .ROUTE .COMPLEX 6 Days Qty: 21 0RF Rx Instructions: Please see dose package instruction. Use as instructed. pantoprazole [Protonix] 40 mg tablet,delayed release (DR/EC) 40 mg PO DAILY Qty: 30 1RF Continued potassium chloride [Klor-Con M20] 20 mEq tablet,ER particles/crystals 20 meq PO DAILY polymyxin B sulf-trimethoprim 10,000 unit- 1 mg/mL drops 1 drp EACH EYE 4X/DAY Label Comments: instill 1 drop into both eyes four times a day tramadol 50 mg tablet 50 mg PO BID PRN (Reason: Pain) Label Comments: TAKE 1 TABLET BY MOUTH TWICE DAILY NEEDED FOR PAIN FOR UP TO 10 DAYS. metformin 500 mg tablet extended release 24 hr 500 mg PO DAILY Label Comments: TAKE 1 TABLET BY MOUTH EVERY DAY WITH BREAKFAST Discontinued doxycycline hyclate 100 mg capsule 100 mg PO BID Referrals / Follow Up: Mariya Penn MD [Primary Care Provider] - Disposition Disposition (needs filled in before D/C Order can be placed): Home, Self Care Charges/Coding Addendum Addendum: Patient was admitted as inpatient but was discharged because of sooner recovery than expected at time of admission. Visit Charges Inpatient E&M: 15084 Disch Hosp
--- NOTE | 2021-12-09 15:12 | CASEMGMT ---
Pt states no need for therapy at discharge. Jonny CARSON CM
[2021-12-09 15:20] VITALS: BP 93/54; PULSE 73; RESP 16; TEMP 36.4; O2SAT 96
[2021-12-09 15:35] LABS: Magnesium 1.9 mg/dL (1.6-2.6)
== END 2021-12-09 16:17 | disposition home or self-care (01) | DRG 603 ==
LOC: ED 13:53 → PCU 14:21
PROVIDERS: Nurse Practitioner; Admitting Provider Internal Medicine; Emergency Provider Emergency Medicine; PCP Internal Medicine; Visit Provider Internal Medicine
DX: L03.211 Cellulitis of face (principal); L03.221 Cellulitis of neck; L03.119 Cellulitis of unspecified part of limb; E11.40 Type 2 diabetes mellitus with diabetic neuropathy, unspecified; C50.911 Malignant neoplasm of unspecified site of right female breast; E83.42 Hypomagnesemia; B95.61 Methicillin susceptible Staphylococcus aureus infection as the cause of diseases classified elsewhere; E86.0 Dehydration; K21.9 Gastro-esophageal reflux disease without esophagitis; E87.6 Hypokalemia; E86.1 Hypovolemia; H02.9 Unspecified disorder of eyelid; L28.0 Lichen simplex chronicus; K12.32 Oral mucositis (ulcerative) due to other drugs; T45.1X5A Adverse effect of antineoplastic and immunosuppressive drugs, initial encounter; Z79.84 Long term (current) use of oral hypoglycemic drugs; Z79.899 Other long term (current) drug therapy
CPT/HCPCS: 36591; 80048; 80076; 82533; 82962; 83605; 83735; 84100; 84443; 85025; 87040; 87640; 87641; 92610; 99251; 99282; J7030; J7040; J7050; A4216; G0463; J0295; J2405

== ENCOUNTER 2022-12-29 11:02 | Observation (INO) | payer BC, SELFPAY ==
[2022-12-29 11:04] VITALS: BP 141/68; PULSE 80; RESP 16; TEMP 35.7; O2SAT 100; BMI 26.1
--- NOTE | 2022-12-29 11:38 | ED.RN ---
pt's friend speaking over pt, not allowing her to speak, she wont understand you. attempted explain that i needed to hear the pt speak and explain in her own words. pt answered this rn's questions correctly. when this rn did have questions for the friend or attempted to include the friend in the conversation, the friend stated im just letting you talk to her. attempted to apologize, did not go well, friend once again states, im just letting you talk to her.
[2022-12-29 11:42] VITALS: BMI 26.1
--- NOTE | 2022-12-29 11:44 | EKG12_ITS ---
Test Reason : NUMBNESS Blood Pressure : / mmHG Vent. Rate : 068 BPM Atrial Rate : 068 BPM P-R Int : 120 ms QRS Dur : 068 ms QT Int : 398 ms P-R-T Axes : 030 059 058 degrees QTc Int : 423 ms Normal sinus rhythm Normal ECG No previous ECGs available Confirmed by NO BRANDON, ADONIS ([id number]), publications editor NATALIIA BOND ([id number]) on 01/03/2023 10:17:07 AM Referred By: KAIT Confirmed By:ADONIS SARABIA MD
--- NOTE | 2022-12-29 11:44 | CT_ITS ---
STUDY: CT BRAIN WITHOUT CONTRAST REASON FOR EXAM: Female, 62 years old. Left neuro symptoms RADIATION DOSAGE (If Supplied By Facility): CTDIvol = ( 44.99 ) mGy, DLP = ( 796.11 ) mGycm TECHNIQUE: Transaxial CT imaging of the brain was performed without administration of intravenous contrast material. Individualized dose optimization techniques were used for this CT. COMPARISON: No relevant priors. FINDINGS: Normal soft tissue structures. Normal calvarium. Normal size ventricles and extra-axial spaces for the patient''s age. Normal white matter tracts of the cerebral hemispheres. Normal basal ganglia and thalami. Normal brainstem. Normal cerebellum. There is no intracranial hemorrhage. There are no findings of an acute ischemic infarction. Normal visualized paranasal sinuses. CT/Brain/Head without Contrast IMPRESSION: Normal unenhanced CT scan of the brain. Electronically Signed: Damaso Avery MD at 13:05 EDT ,
--- NOTE | 2022-12-29 11:45 | ED.RN ---
rt side of forehead will wrinkle when pt raises eyebrows, lt side remains smooth.
--- NOTE | 2022-12-29 11:52 | NURSING ---
NO OLD EKGS
--- NOTE | 2022-12-29 12:07 | EDS_ITS ---
HPI History of Present Illness Chief Complaint: Neuro S/Sx Informant: patient Narrative Narrative: Patient is a 62-year-old female with history of lung cancer as well as breast cancer status post mastectomy currently on maintenance Arimidex, presenting from [facility] clinic for stroke symptoms. Patient's for the past week has had intermittent numbness and paresthesias of her left upper extremity and numbness of her left lower extremity. She first noticed it after taking a long walk and then laying down. It lasted for couple hours. The last time she was aware of symptoms was yesterday however when she was seen in the office today she was noted to have subjective paresthesias to the left lower extremity and also have a left facial droop. Patient was not aware that she had a left facial droop. She is not on any blood thinners. She denies any pain or discomfort at this time. Denies any head injuries or trauma. Does have a history of diabetes mellitus and family history of hypertension but no personal history of high blood pressure. She never had a stroke before. Denies any recent vision changes, falls, abdominal pain or urinary symptoms. No other complaints or concerns at this time. [facility] Medical History Adverse effect of chemotherapy Breast cancer Cellulitis diffuse, face Cellulitis of neck Elevated cortisol level Leukocytosis Malignant neoplasm metastatic to breast Metastatic breast cancer Home Medications metformin 500 mg tablet,extended release 24 hr 500 mg PO DAILY dm 12/08/21 [History Last Taken 12/29/22] anastrozole 1 mg tablet 1 mg PO DAILY 12/29/22 [History Last Taken 12/29/22] Allergy/AdvReac Type Severity Reaction Status Date / Time No Known Allergies Allergy Verified 12/29/22 11:04 Social History Smoking Status: Never smoker ROS ROS ED Constitutional Constitutional ED: Denies chills, fever(s) or sweats Eyes Eyes: Denies change in vision or diplopia ENT ENT ED: Denies sore throat Cardiovascular Cardiovascular: Denies chest pain Respiratory/Chest Respiratory/Chest: Denies cough Gastrointestinal Gastrointestinal: Denies abdominal pain, nausea or vomiting Genitourinary Genitourinary ED: Reports urinary frequency; Denies dysuria or hematuria Musculoskeletal Musculoskeletal: Denies arthralgias or myalgias Integumentary Denies rash Neurologic Neurologic: Reports paresthesias and other Details: Left facial droop ; Denies headache(s) Psychiatric Psychiatric: Denies anxiety Hematologic/Lymphatic Hematologic/Lymphatic: Denies easy bleeding or easy bruising EXAM Physical Exam Const Vital Signs: 12/29/22 11:04 12/29/22 12:54 Temperature 96.2 F L Temperature Source Temporal Pulse Rate 80 81 Respiratory Rate 16 Blood Pressure 141/68 H 143/65 H Blood Pressure Mean 92 91 Pulse Ox 100 100 Oxygen Delivery Method Room Air Room Air Positive well nourished and well developed General Appearance ED: well developed and NAD HEENT Reports moist mucous membranes Eyes PERRL and EOMs intact bilaterally Neck supple and no JVD Chest Wall inspection of chest normal and palpation of chest normal Chest Narrative: Port present in the left anterior chest wall Resp normal respiratory effort and clear to auscultation bilaterally Cardio no murmurs Rate: regular rate Rhythm: regular rhythm GI normal to inspection, nondistended, normoactive bowel sounds and soft to palpation Extremity normal to inspection General Extremety ED: Negative for deformity General Extremity: Negative for deformity Neuro oriented x3 Neuro Narrative: Subtle left facial droop, subjective paresthesias of the left lower extremity compared to the right. NIH equals 2. Coordination normal, normal speech Sensorium / Orientation: alert, oriented to person, oriented to place and oriented to time Psych mental status grossly normal Skin no wounds NIHSS NIHSS Initial: 1a Level of Consciousness: 0 1b LOC Questions (Score 2 if aphasic/stupor): 0 1c LOC Commands (Only score 1st attempt): 0 2 Best Gaze (If aphasic, use reflexive mvmts.): 0 3 Visual: 0 4 Facial Palsy: 1 5 Motor Arm Right (UN = amputation/fusion): 0 5 Motor Arm Left: 0 6 Motor Leg Right: 0 6 Motor Leg Left: 0 7 Limb ataxia (Only + if out of proportion): 0 8 Sensory (Aphasia/stupor=0 or 1, coma=2): 1 9 Best Language: 0 10 Dysarthria (mute, coma=2, intubated=UN): 0 11 Extinction and Inattention (only scored if +): 0 Total Score: 2 MDM MDM MDM Narrative Medical decision making narrative: Is evaluated for intermittent neurologic symptoms for the past week. Last known well is unknown however she has had these current symptoms for at least 24 hours and is outside of the stroke window. Will obtain a stroke work-up. Differential also includes a space occupying lesion/mass given her history of cancer. Work-up was largely negative in the ER. Vital signs initially showed some mild hypertension but normalized. CT of the brain does not show any acute process. I do not perform CTA as it is not clear if she has a PowerPort for vascular access. Regardless patient's presentation is not consistent with LVO and as she is been having waxing waning symptoms for a week this is even less likely. However, given her symptoms, current NIH of 2 with risk factors for intracranial process including diabetes and cancer history I do think that she would benefit from admission for MRI and further neurologic evaluation. Patient is agreeable with this plan of care. She is given dose of aspirin the emergency room. Case is discussed with admitting physician, Dr. Chappell. Lab Data Labs: Laboratory Results - last 24 hr 12/29/22 12/29/22 12:23 12:51 WBC 6.0 RBC 4.51 Hgb 13.6 Hct 41.8 MCV 92.7 MCH 30.2 MCHC 32.5 RDW Std Deviation 44.2 H RDW Coeff of Sanam 13.1 Plt Count 199 MPV 10.5 Immature Gran % (Auto) 0.300 Neut % (Auto) 55.3 Lymph % (Auto) 29.4 [place] % (Auto) 12.5 H Eos % (Auto) 1.8 Baso % (Auto) 0.7 Absolute Neuts (auto) 3.3 Absolute Lymphs (auto) 1.76 Nucleated RBC % 0 PT 12.5 INR 0.9 Sodium 140 Potassium 3.7 Chloride 109 H Carbon Dioxide 25.0 Anion Gap 6 BUN 8 Creatinine 0.80 Estim Creat Clear Calc 65.83 Est GFR (MDRD) Af Amer 92 Est GFR (MDRD) Non-Af 76 BUN/Creatinine Ratio 9.9 L Glucose 110 H Calcium 9.0 Urine Color Straw Urine Clarity Clear Urine pH 7.0 Ur Specific [place] 1.005 Urine Protein Negative Urine Glucose (UA) Normal Urine Ketones Negative Urine Occult Blood Negative Urine Nitrite Negative Urine Bilirubin Negative Urine Urobilinogen Normal Ur Leukocyte Esterase Negative Urine RBC 0 SEEN Urine WBC 0 SEEN Ur Squamous Epith Cells 0 SEEN Urine Bacteria 0 SEEN Urine Mucus 0 SEEN Radiography Chest X-Ray - ED: 1 View, Read by ED Physician and Read by Radiologist Diagnostic Testing: Clinical Impression(s) from Imaging Studies Brain CT 12/29/22 11:44 IMPRESSION: Normal unenhanced CT scan of the brain. Electronically Signed: Damaso Avery MD at 13:05 EDT , Chest X-Ray 12/29/22 12:36 IMPRESSION: No acute abnormality is seen. Electronically Signed: Damaso Avery MD at 13:03 EDT , Rhythm Strip Rhythm Strip: Sinus Rhythm Rate: 68 Ectopy: None EKG Initial EKG: Attestation: I personally reviewed and interpreted this EKG as follows: Interpretation: Sinus Rhythm Comments: Normal sinus rhythm rate of 68 bpm Normal axis Normal intervals Normal ST segments Discharge Plan Dx/Rx/DC Orders Clinical Impression: History of breast cancer, Diabetes mellitus, Left leg numbness, Facial droop Disposition Disposition: Acute Care Hospital [facility] Discharge Date/Time: 12/29/22 15:10
[2022-12-29 12:31] LABS: Absolute Lymphocyte Count 1.76 X10^3/uL (0.83-4.51); Absolute Neutrophil Count 3.3 X10^3/uL (2.0-7.7); Basophil# 0.04 X10^3/uL; Basophil% 0.7 % (0-1); Eosinophil# 0.11 X10^3/uL; Eosinophils% 1.8 % (0-5); Hematocrit 41.8 % (37-47); Hemoglobin 13.6 g/dL (12.0-15.0); Lymphocyte # 1.76 X10^3/ul (0.83-4.51); Lymphocyte % 29.4 % (19-41); Mean Corp Hgb Conc 32.5 g/dL (32-36); Mean Corpuscular Hgb 30.2 pg (27.0-32.0); Mean Corpuscular Volume 92.7 fL (81-99); Mean Platelet Vol. 10.5 fl (6.2-12.0); Monocyte# 0.75 X10^3/uL; Monocyte% 12.5 % (0-10); NRBC Flagged by Analyzer 0 % (0-5); Neutrophil # 3.31 X10^3/uL (2.7-7.7); Neutrophil % 55.3 % (47-70); Platelet Count 199 K/mm3 (150-450); RBC Distribution Width CV 13.1 % (11.6-14.6); RBC Distribution Width SD 44.2 fl (35.1-43.9); Red Blood Count 4.51 M/mm3 (4.2-5.4)
--- NOTE | 2022-12-29 12:36 | RAD_ITS ---
STUDY: X-RAY CHEST REASON FOR EXAM: Female, 62 years old. Stroke symptoms TECHNIQUE: Single AP portable view of the chest. COMPARISON: None. FINDINGS: EKG electrodes are seen. A left-sided Port-A-Cath is seen with the tip at the junction of the superior vena cava and right atrium. Surgical clips are seen in the right axilla. The patient appears to have prior mastectomy. The lungs are clear and expanded. There is no demonstrated pleural abnormality. Normal size heart. Normal mediastinum and zoe. Normal visualized pulmonary arteries. There is atherosclerotic tortuosity of the aortic arch and descending thoracic aorta. There are diffuse degenerative changes of the visualized thoracic spine. Normal visualized ribs, clavicles, and shoulders. There is no demonstrated abnormality of the visualized soft tissue structures of the upper abdomen. RAD/Chest 1 View (Portable) IMPRESSION: No acute abnormality is seen. Electronically Signed: Damaso Avery MD at 13:03 EDT ,
[2022-12-29 12:40] LABS: International Normalized Ratio 0.9; Prothrombin Time (Protime)PT. 12.5 SECONDS (11.7-14.9)
[2022-12-29 12:48] LABS: Anion Gap 6 (5-15); BUN 8 mg/dL (7-18); BUN/Creat Ratio 9.9 RATIO (10-20); Chloride 109 mmol/L (98-107); EST Glomerular Filtration Rate 76 mL/min (>60); Est Glom Filt Rate - Afr Amer 92 mL/min (>60); Estimated Creatinine Clearance 65.83 ml/min; Glucose 110 mg/dL (74-106); Potassium 3.7 mmol/L (3.5-5.1); Sodium Level 140 mmol/L (136-145)
[2022-12-29 12:54] VITALS: BP 143/65; PULSE 81; O2SAT 100
[2022-12-29 12:54] LABS: Bacteria 0 SEEN /hpf (None Seen); Mucous, Urine 0 SEEN /hpf (<or=2+); Red Blood Cells-Urine 0 SEEN /hpf (0-5); Squamous Epithelial Cells - UA 0 SEEN /hpf (5-10); White Blood Cells 0 SEEN /hpf (0-5)
[2022-12-29 12:56] LABS: Color, Urine Straw (Yellow); Glucose, Dipstick Normal (Normal); Ketone-Dipstick Negative (Negative); Leukocyte Esterase-Dipstick Negative /ul (Negative); Nitrite-Dipstick Negative (Negative); Occult Blood-Urine Negative /ul (Negative); Protein-Dipstick Negative (Negative); Specific Gravity, Urine 1.005 (1.002-1.030); Urine Bilirubin Dipstick Negative (Negative); Urine Clarity Clear (Clear); Urine Urobilinogen Normal (Normal)
[2022-12-29 14:49] VITALS: BP 116/89; BP 118/69; PULSE 72; PULSE 73; RESP 18; TEMP 36.6; O2SAT 100
[2022-12-29] MEDS: Aspirin 325 MG Tablet PO (14:52)
--- NOTE | 2022-12-29 15:05 | NURSING ---
118 OBS RODRIGUEZ STROKE SYMPTOMS
--- NOTE | 2022-12-29 15:07 | HP.PCM.HOS_ITS ---
HPI - General General Date of Admission: 12/29/22 Date of Service: 12/29/22 Chief Complaint: Facial droop and paresthesia's HPI Narrative JASMIN MILLARD, is a 62 F hx of breast and lung cancer status post 1 year of chemotherapy now on Arimidex following with Dr. Damon and diabetes who presented to [facility] 12/29/2022 for intermittent right arm tingling over the past week and today with left leg tingling and facial droop. Arm tingling had been coming and going and then today at a doctor's appointment it was noted that she had the subjective left leg paresthesias and facial droop so she was sent to the emergency department. In the ED a CT of her head was unremarkable and lab work-up unremarkable. Given symptoms over the past week it was deemed she is not a candidate for intervention at this time, NIH of 2. Hospitalist consulted for admission for stroke work-up. Patient seen at bedside with friend present, she reports intermittent numbness and tingling in her left arm for the past 1 to 2 weeks that will come and go, today she did not notice any facial asymmetry or difference in feeling on her legs until it was tested earlier and it brought it to her awareness. She reports that she is tired and has difficult y sleeping at night and thought that this is all due to being tired in addition to lasting side effects from chemotherapy but she denies any right-sided symptoms. She denies any headache, reports that she does have a harder time seeing close up compared to far away we will have eyes that are sometimes dry or sometimes watery but does not appear to have differences between both sides. Has a hard time lifting up her right arm but that has been the same since her right-sided mastectomy. Had no other acute complaints [facility] Medical History Adverse effect of chemotherapy Breast cancer Cellulitis diffuse, face Cellulitis of neck Elevated cortisol level Leukocytosis Malignant neoplasm metastatic to breast Metastatic breast cancer Home Medications metformin 500 mg tablet,extended release 24 hr 500 mg PO DAILY dm 12/08/21 [History Last Taken 12/29/22] anastrozole 1 mg tablet 1 mg PO DAILY 12/29/22 [History Last Taken 12/29/22] Allergy/AdvReac Type Severity Reaction Status Date / Time No Known Allergies Allergy Verified 12/29/22 11:04 Social History Smoking Status: Never smoker ROS ROS Narrative General: Denies fever/chills HENT: Denies headache, denies stuffy nose, denies sore throat EYES: Has a harder time seeing close up compared to far and alternates between dry and watery eyes Resp: Denies cough, denies shortness of breath Cardiac: Denies chest pain GI: Denies abdominal pain, denies changes in bowel, denies nausea/vomiting : Denies changes in urination Extremity: Denies swelling MSK: Denies weakness Neuro: Intermittent paresthesias of left upper and lower extremities then difficulty raising left eye brow Heme: Denies any bleeding or bruising Skin: Has mosquito bites Psychiatric: No complaints voiced Vital Signs Vital Signs Vital Signs: 12/29/22 11:04 12/29/22 12:54 12/29/22 14:49 Temperature 96.2 F L Temperature Source Temporal Pulse Rate 80 81 72 Respiratory Rate 16 18 Blood Pressure 141/68 H 143/65 H 116/89 H Blood Pressure Mean 92 91 98 Pulse Ox 100 100 100 Oxygen Delivery Method Room Air Room Air Room Air 12/29/22 14:49 Temperature 97.8 F Temperature Source Temporal Pulse Rate 73 Respiratory Rate 18 Blood Pressure 118/69 Blood Pressure Mean 85 Pulse Ox 100 Oxygen Delivery Method Room Air Weight Weight: 58.695 kg Body Mass Index (BMI) 26.1 Physical Exam Narrative General: Alert, oriented, no apparent distress HEENT: Atraumatic, unable to raise left eyebrow but is able to puff up cheeks Eyes: Anicteric, normal conjunctiva, extraocular movements intact, pupils equal Neck: Supple Respiratory: Clear to auscultation bilaterally, normal respiratory effort Cardiovascular: Regular rate and rhythm GI: Soft, nontender, nondistended Extremities: No edema Musculoskeletal: Strength 5 out of 5 in right upper extremity, 5 out of 5 left u pper extremity, 5 out of 5 right lower extremity, 5 out of 5 left lower extremity Neuro: Cannot raise left eyebrow but is moving restive face symmetrically and otherwise cranial nerves II through XII intact, [id number] without significant difficulty bilaterally Skin: No rashes appreciated Psych: Cooperative Results Lab / Micro Data 12/29/22 12:23 12/29/22 12:23 Labs: Laboratory Results - last 24 hr 12/29/22 12:23: WBC 6.0, RBC 4.51, Hgb 13.6, Hct 41.8, MCV 92.7, MCH 30.2, MCHC 32.5, RDW Std Deviation 44.2 H, RDW Coeff of Sanam 13.1, Plt Count 199, MPV 10.5, Immature Gran % (Auto) 0.300, Neut % (Auto) 55.3, Lymph % (Auto) 29.4, Wake % (Auto) 12.5 H, Eos % (Auto) 1.8, Baso % (Auto) 0.7, Absolute Neuts (auto) 3.3, Absolute Lymphs (auto) 1.76, Nucleated RBC % 0, PT 12.5, INR 0.9, Sodium 140, Potassium 3.7, Chloride 109 H, Carbon Dioxide 25.0, Anion Gap 6, BUN 8, Creatinine 0.80, Estim Creat Clear Calc 65.83, Est GFR (MDRD) Af Amer 92, Est GFR (MDRD) Non-Af 76, BUN/Creatinine Ratio 9.9 L, Glucose 110 H, Calcium 9.0 12/29/22 12:51: Urine Color Straw, Urine Clarity Clear, Urine pH 7.0, Ur Specific [place] 1.005, Urine Protein Negative, Urine Glucose (UA) Normal, Urine Ketones Negative, Urine Occult Blood Negative, Urine Nitrite Negative, Urine Bilirubin Negative, Urine Urobilinogen Normal, Ur Leukocyte Esterase Negative, Urine RBC 0 SEEN, Urine WBC 0 SEEN, Ur Squamous Epith Cells 0 SEEN, Urine Bacteria 0 SEEN, Urine Mucus 0 SEEN Rhythm Strip Rhythm Strip: Sinus Rhythm Rate: 68 Ectopy: None Radiology Impression Brain CT 12/29/22 11:44 IMPRESSION: Normal unenhanced CT scan of the brain. Electronically Signed: Damaso Avery MD at 13:05 EDT , Chest X-Ray 12/29/22 12:36 IMPRESSION: No acute abnormality is seen. Electronically Signed: Damaso Avery MD at 13:03 EDT , Assessment & Plan Assessment/Plan (1) Neurologic abnormality: (2) Diabetes mellitus, type 2: (3) History of breast cancer in female: PLAN: Plan #Facial droop and left-sided paresthesias -Admit to tele -CT head w/ unremarkable in ED, will order CTA -MRI w/ and w/out contrast given multiple waxing and waning complaints -NIH q4hr -Will check tsh, lipid panel, a1c -asa, statin -Echo w/ bubble study -PT/OT/Speech eval -Hold BP medications to allow for permissive hypertension for 24 hours unless SBP greater than 220 or DBP greater than 120 or until stroke is ruled out #Breast cancer and lung lesions -Status post 1 year of treatment now on Arimidex daily -Following with Dr. Damon -Could certainly have brain lesions that could lead to symptoms so we will obtain MRI #Type 2 diabetes mellitus -Glucose checks and sliding scale insulin -Check A1c -Hold metformin #DVT ppx: Rian Chappell MD Time spent in the patient's overall evaluation,decision-making process, review of diagnostic data, adjustment of management, discussion with other providers, nursing nursing and ancillary staff involved in patient's care documentation, 56 minutes Charges/Coding Visit Charges Inpatient E&M: 57424 Init Hosp L2
--- NOTE | 2022-12-29 15:14 | MRI_ITS ---
STUDY: MRI BRAIN WITH AND WITHOUT CONTRAST REASON FOR EXAM: Female, 62 years old. multiple neurologic deficits -- has port--hx of breast ca--left sided pain and numbness TECHNIQUE: Standardized multiplanar fat and water weighted pulse sequences were obtained. IV 11ml Clariscan was administered for the contrast portion of the examination. COMPARISON: CT of the brain December 29, 2022 FINDINGS: Normal size of the ventricles and extra-axial spaces for the patient''s age. Minor nonspecific periventricular white matter changes changes without mass effect or restricted diffusion.. Normal bilateral basal ganglia. Normal thalami. There is no extra-axial fluid accumulation. Normal flow voids within the major intracranial circulation suggesting patency by spin echo criteria. Normal venous enhancement. There is no enhancing intra-axial or extra-axial abnormality. Normal sella turcica, pituitary gland, infundibular stalk, optic chiasm and hypothalamus. Normal tectal plate and pineal gland. Normal midbrain, dustin and medulla. Normal cerebellum. Normal basal cisterns. Normal bilateral temporal bones. Normal bilateral internal auditory canals. Increased signal intensity within left mastoid air cells possibly due to prior inflammatory disease Postsurgical changes of the orbits.. Normal visualized paranasal sinuses. Normal calvarium and skull base. Normal visualized soft tissue structures. Normal visualized upper cervical spine. MRI/Brain W/WO Contrast IMPRESSION: Minor periventricular white matter ischemic change without evidence for acute infarct.. No evidence for brain metastases Electronically Signed: Manny Solo MD at 18:03 EDT ,
--- NOTE | 2022-12-29 15:14 | ECHOD_ITS ---
Version 3 Reason For Study: TIA/Stroke Procedure This was a 2D Doppler, Color Flow transthoracic echocardiogram. Myocardial strain analysis was performed in this exam to aid in the assessment of cardiac function. Exam performed portable in patient room. Left Ventricle Normal LV size. Mild concentric left ventricular hypertrophy. Left ventricular systolic function is normal. The estimated ejection fraction is 60 %. Stage 1 diastolic dysfunction. No regional wall motion abnormalities noted. Right Ventricle Normal RV size. Normal systolic function. Atria Normal left atrium. Normal right atrium. Bubble contrast study negative for right to left interatrial shunt. Mitral Valve Normal mitral valve. Tricuspid Valve Normal tricuspid valve. Aortic Valve Normal aortic valve. Pulmonic Valve Normal pulmonic valve. Mild (1+) pulmonic valve insufficiency. Great Vessels Normal aortic root. The pulmonary artery is normal size. Normal inferior vena cava. Pericardium/Pleural No pericardial effusion. Medication Performed a rapid injection of agitated mix of 9 cc saline and 1cc air to assess for atrial septal defect. MMode/2D Measurements & Calculations LVIDd: 3.6 cm IVSd: 1.2 cm Ao root diam: 3.3 cm LVIDs: 1.8 cm LVPWd: 1.2 cm RVDd: 3.6 cm FS: 48.6 % LAV(MOD-bp): 18.2 ml LVAd ap4: 12.5 cm2 SV(MOD-sp4): 15.2 ml LAV(MOD-bp) Indexed: 11.9 ml/m2 LVLd ap4: 6.1 cm LAV(MOD-sp2): 15.9 ml EDV(MOD-sp4): 22.1 ml LAV(MOD-sp4): 18.5 ml EDV(sp4-el): 21.8 ml LVAs ap4: 6.5 cm2 LVLs ap4: 5.3 cm ESV(MOD-sp4): 6.9 ml ESV(sp4-el): 6.9 ml EF(MOD-sp4): 68.9 % EF(sp4-el): 68.5 % SV(sp4-el): 14.9 ml LA A4 area: 9.5 cm2 LA dimension(2D): 3.1 cm RA A4 area: 9.4 cm2 Time Measurements MV dec time: 0.24 sec Doppler Measurements & Calculations MV E max sean: 64.6 cm/sec Lat Peak E' Sean: 7.0 cm/sec Med Peak E' Sean: 5.0 cm/sec MV A max sean: 90.7 cm/sec E/E' lat: 9.2 E/E' med: 12.9 MV E/A: 0.71 MV dec slope: 274.8 cm/sec2 Ao V2 max: 127.3 cm/sec LV V1 max: 109.9 cm/sec Ao max P.5 mmHg LV V1 max P.8 mmHg Ao V2 mean: 92.9 cm/sec Ao mean P.7 mmHg Ao V2 VTI: 26.5 cm PA V2 max: 93.1 cm/sec ECHO/Echo Complete Interpretation Summary Normal LV size. Left ventricular systolic function is normal. The estimated ejection fraction is 60 %. Mild concentric left ventricular hypertrophy. Stage 1 diastolic dysfunction. Bubble contrast study negative for right to left interatrial shunt. The global longitudinal strain is mildly abnormal. The global longitudinal stra in = -15.8% (abnormal). Ordering Physician: Laura Chappell Referring Physician: Mariya Penn Performed By: Christina Reyes, RAYOCS, RVT
[2022-12-29 15:18] VITALS: BP 121/56; PULSE 71; RESP 17; TEMP 36.6; O2SAT 97
[2022-12-29 15:32] VITALS: BMI 25.3
[2022-12-29 17:20] VITALS: BMI 25.3
--- NOTE | 2022-12-29 18:25 | CT_ITS ---
We are attempting to reach an attending provider to discuss findings. An addendum with communication details will be sent when the communication is complete. STUDY: CTA HEAD AND NECK WITH CONTRAST REASON FOR EXAM: Female, 62 years old. Neuro deficit, acute, stroke suspected RADIATION DOSAGE (If Supplied By Facility): CTDIvol = ( 25.08 ) mGy, DLP = ( 1436.41 ) mGycm TECHNIQUE: CT angiography was performed with a multi-detector CT scanner. Data acquisition was obtained from the skull base through the vertex following intravenous administration of IV 100mL Isovue-370. MIP images were reconstructed from the axial data set. Post-processing of the angiographic images was performed, with multiplanar reformation and 3D reconstruction. Individualized dose optimization techniques were used for this CT. COMPARISON: No relevant priors. FINDINGS: Normal bilateral petrous carotid arteries. Normal right cavernous carotid artery with a normal supraclinoid bifurcation. Normal left cavernous carotid artery with a normal supraclinoid bifurcation. Normal right A1 segments of the anterior cerebral artery. Normal left A1 segments of the anterior cerebral artery. Anterior communicating artery not visualized consistent with normal variant). Normal bilateral A2 segments of the anterior cerebral arteries. Normal right M1 and M2 segments of the middle cerebral arteries, with a normal M1 bifurcation. Normal left M1 and M2 segments of the middle cerebral arteries, with a normal M1 bifurcation. Posterior communicating arteries are not visualized consistent with normal variant Normal bilateral vertebral arteries. Normal basilar artery with a normal basilar bifurcation. The visualized bilateral superior cerebellar (SCA) arteries are normal. Normal bilateral P1, P2 and visualized P3 segments of the posterior cerebral arteries. There is no demonstrated aneurysm of the [place]. AORTIC ARCH: Normal visualized aortic arch. Normal origins of the brachiocephalic, left common carotid, and left subclavian arteries. RIGHT CAROTID ARTERIES: Normal right common carotid artery (CCA). Minimal calcific plaquing of the right common carotid bulb. Normal origin of the right internal carotid (ICA) artery without a hemodynamically significant stenosis. Normal visualized cervical portion of the right internal carotid artery. Normal origin of the right external carotid artery (ECA). LEFT CAROTID ARTERIES: Normal left common carotid artery (CCA). Minimal calcific plaquing of the left common carotid bulb. Normal origin of the left internal carotid (ICA) artery without a hemodynamically significant stenosis. Normal visualized cervical portion of the left internal carotid artery. Normal origin of the left external carotid artery (ECA). VERTEBRAL ARTERIES: Normal bilateral vertebral arteries. CT/STROKE CTA Head AND Neck W/Con IMPRESSION: Minor atherosclerotic changes of the head and neck No hemodynamically significant stenosis or vascular occlusion Electronically Signed: Manny Solo MD at 18:47 EDT ,
[2022-12-29 19:05] LABS: Bedside Glucose 97 mg/dL (74-106)
[2022-12-29 21:57] VITALS: BP 127/80; PULSE 75; RESP 18; TEMP 36.4; O2SAT 97
[2022-12-29] MEDS: Atorvastatin Calcium 80 MG Tablet PO (22:14)
[2022-12-29 23:43] LABS: Bedside Glucose 119 mg/dL (74-106)
[2022-12-30 04:08] VITALS: BP 103/47; PULSE 70; RESP 18; TEMP 36.3; O2SAT 97
[2022-12-30 04:26] VITALS: BMI 25.3
[2022-12-30 04:27] VITALS: BMI 25.3
[2022-12-30 06:48] LABS: Bedside Glucose 105 mg/dL (74-106)
--- NOTE | 2022-12-30 08:22 | DCINST_ITS ---
Discharge Instructions Diet Discharge Diet: No restrictions Activity Discharge Activity: Return to Normal Activity Dressing / Incision Call your doctor if you observe: Fever of 101 or Higher, Shortness of breath, Dizziness, Fainting spells, Swelling in the ankles, Chest pain and Increased palpitations (irregular heartbeat) Follow Up Care Test Results: Test results from this visit will be discussed in further detail at your follow- up appointment, if applicable. Discharge Plan Admission Admit Date/Time: 12/29/22 15:07 Attending Provider: Carlos Martinez Primary Care Provider: Mariya Penn Consulting Providers: Laura Chappell Discharge Orders/Prescriptions Prescriptions: Continued metformin 500 mg tablet extended release 24 hr 500 mg PO DAILY Patient Comments: TAKE 1 TABLET BY MOUTH EVERY DAY WITH BREAKFAST anastrozole 1 mg tablet 1 mg PO DAILY Referrals / Follow Up: Mariya Penn MD [Primary Care Provider] - Within 1 Week Aroldo Koch MD [Med Staff - Active Staff] - Within 1 Week Disposition Disposition (needs filled in before D/C Order can be placed): Home, Self Care
[2022-12-30 08:27] LABS: Absolute Lymphocyte Count 1.48 X10^3/uL (0.83-4.51); Absolute Neutrophil Count 2.4 X10^3/uL (2.0-7.7); Basophil# 0.04 X10^3/uL; Basophil% 0.9 % (0-1); Eosinophil# 0.15 X10^3/uL; Eosinophils% 3.3 % (0-5); Hematocrit 43.1 % (37-47); Hemoglobin 13.9 g/dL (12.0-15.0); Lymphocyte # 1.48 X10^3/ul (0.83-4.51); Lymphocyte % 32.1 % (19-41); Mean Corp Hgb Conc 32.3 g/dL (32-36); Mean Corpuscular Volume 92.9 fL (81-99); Mean Platelet Vol. 10.4 fl (6.2-12.0); Monocyte# 0.57 X10^3/uL; Monocyte% 12.4 % (0-10); NRBC Flagged by Analyzer 0 % (0-5); Neutrophil # 2.36 X10^3/uL (2.7-7.7); Neutrophil % 51.1 % (47-70); Platelet Count 193 K/mm3 (150-450); RBC Distribution Width CV 13.2 % (11.6-14.6); RBC Distribution Width SD 44.8 fl (35.1-43.9); Red Blood Count 4.64 M/mm3 (4.2-5.4); White Blood Count 4.6 K/mm3 (4.4-11.0)
[2022-12-30 08:35] VITALS: BP 138/68; PULSE 89; RESP 16; TEMP 36.6; O2SAT 98
[2022-12-30] MEDS: Aspirin 81 MG TAB.CHEW PO (08:40)
[2022-12-30 08:55] LABS: Hemoglobin A1c 6.7 % (3.8-5.6)
[2022-12-30 08:59] LABS: ALB/GLOB Ratio 0.8 RATIO (0.9-2.4); AST(SGOT) 38 U/L (15-37); Alanine Aminotransfer ALT/SGPT 36 U/L (13-56); Albumin, Serum 3.5 g/dL (3.2-5.0); Alkaline Phosphatase 55 U/L (45-117); Anion Gap 4 (5-15); BUN 10 mg/dL (7-18); BUN/Creat Ratio 12.2 RATIO (10-20); Calcium,Total 8.9 mg/dL (8.5-10.1); Chloride 107 mmol/L (98-107); Cholesterol 218 mg/dL (200); Creatinine, Serum 0.82 mg/dL (0.55-1.02); EST Glomerular Filtration Rate 75 mL/min (>60); Est Glom Filt Rate - Afr Amer 91 mL/min (>60); Estimated Creatinine Clearance 62.37 ml/min; Globulin 4.2 g/dL (2.2-4.2); Glucose 121 mg/dL (74-106); High Density Lipoprotein 63 mg/dL; Potassium 4.1 mmol/L (3.5-5.1); Protein, Total 7.7 g/dL (6.4-8.2); Sodium Level 138 mmol/L (136-145); Thyroid Stim Hormone (TSH) 2.34 uIU/mL (0.358-3.74); Triglycerides 157 mg/dL; Very Low Density Lipoprotein 31 mg/dL (5-40)
[2022-12-30 10:36] VITALS: BMI 25.3
[2022-12-30 11:24] VITALS: BP 127/62; PULSE 88; RESP 16; TEMP 36.6; O2SAT 99
[2022-12-30 11:56] LABS: Bedside Glucose 170 mg/dL (74-106)
[2022-12-30] MEDS: 0.9 % NaCl (Sterile) Posiflush 10 mL IV (13:01)
--- NOTE | 2022-12-30 16:42 | DS.PCM_ITS ---
Providers Date of Admission: 12/29/22 Primary Care Physician: Dr. Mariya Penn MD Reason For Visit: STROKE SYMPTOMS Diagnosis Discharge Diagnosis (1) Neurologic abnormality: Status: Acute Code(s): R29.818 - Other symptoms and signs involving the nervous system (2) Diabetes mellitus, type 2: Status: Acute Code(s): E11.9 - Type 2 diabetes mellitus without complications (3) History of breast cancer in female: Status: Acute Code(s): Z85.3 - Personal history of malignant neoplasm of breast Medications at Discharge Home Medications metformin 500 mg tablet,extended release 24 hr 500 mg PO DAILY dm 12/08/21 anastrozole 1 mg tablet 1 mg PO DAILY breast cancer 12/29/22 Hospital Course Procedures 2-D Echocardiogram Summary of Care Provided Minutes Spent on Discharge: 33 Hospital Course: Per HPI: JASMIN MILLARD, is a 62 F hx of breast and lung cancer status post 1 year of chemotherapy now on Arimidex following with Dr. Damon and diabetes who presented to [facility] 12/29/2022 for intermittent right arm tingling over the past week and today with left leg tingling and facial droop. Arm tingling had been coming and going and then today at a doctor's appointment it was noted that she had the subjective left leg paresthesias and facial droop so she was sent to the emergency department. In the ED a CT of her head was unremarkable and lab work-up unremarkable. Given symptoms over the past week it was deemed she is not a candidate for intervention at this time, NIH of 2. Hospitalist consulted for admission for stroke work-up. Patient seen at bedside with friend present, she reports intermittent numbness and tingling in her left arm for the past 1 to 2 weeks that will come and go, today she did not notice any facial asymmetry or difference in feeling on her legs until it was tested earlier and it brought it to her awareness. She reports that she is tired and has difficulty sleeping at night and thought that this is all due to being tired in addition to lasting side effects from chemotherapy but she denies any right- sided symptoms. She denies any headache, reports that she does have a harder time seeing close up compared to far away we will have eyes that are sometimes dry or sometimes watery but does not appear to have differences between both sides. Has a hard time lifting up her right arm but that has been the same since her right-sided mastectomy. Had no other acute complaints Hospital Course: 1. Bilateral paresthesias and facial droop and inability to lift left eyebrow? 62-year-old female presented to the hospital with several weeks worth of paresthesias that she says were in both hands and feet and coming and going. She also states that she had some shooting pain going up into her head periodically over the last year. Lab work was unremarkable and imaging was also normal. MRI did not demonstrate any metastatic lesions from her stage III breast cancer or signs of stroke. CTA of the head and neck was unremarkable. Looking up her chemotherapy agents as well as the anastrozole that she is on now all of which can lead to paresthesias and peripheral neuropathy. For completeness sake I did order a vitamin B12 which is currently pending and I did recommend that she follow-up for this lab work however with normal imaging and lab work I recommend that she follow-up with her oncologist and PCP for management of her neuropathy. I discussed with her and her daughter the plan for discharge and they both expressed understanding of the risk and benefits of going home and are okay with going home today. Echo was also obtained yesterday and it was unremarkable with stage I diastolic dysfunction and normal EF. 2. Cancer, type 2 diabetes are chronic medical conditions which complicate her care. Her home medications were continued where appropriate Physical Exam Narrative General: Alert, Oriented x3, Cooperative, No apparent distress HEENT: Atraumatic, PERRLA, EOMI, Normocephalic Oral: Moist Mucosa Neck: Supple, No JVD Lungs: Diminished, Normal air movement, No rhonchi, No wheeze, No rales Cardiovascular: Regular rate, Regular Rhythm, Normal S1, Normal S2, No murmurs Abdomen: Soft, Non Tender, Non-Distended, No Hepato-splenomegaly Extremities: No edema, Capillary Refill Less than 3 Seconds Skin: No rashes, No breakdown Musculoskeletal: No Tenderness to Palpation of Joints or Extremities Neurological: Cranial nerves II-XII grossly intact, Motor Exam 5/5 strength throughout, bilaterally diminished sensation in his upper extremities and lower extremities with some paresthesias Psych/Mental Status: Normal Affect, Appropriate Weight / BMI Weight Weight: 125 lb 10.616 oz Body Mass Index (BMI) 25.3 ABG / Lab / Microbiology Data 12/30/22 07:54 12/30/22 07:54 Laboratory: Laboratory Results - last 24 hr 12/29/22 18:47: POC Glucose 97 12/29/22 22:04: POC Glucose 119 H 12/30/22 06:16: POC Glucose 105 12/30/22 07:54: WBC 4.6, RBC 4.64, Hgb 13.9, Hct 43.1, MCV 92.9, MCH 30.0, MCHC 32.3, RDW Std Deviation 44.8 H, RDW Coeff of Sanam 13.2, Plt Count 193, MPV 10.4, Immature Gran % (Auto) 0.200, Neut % (Auto) 51.1, Lymph % (Auto) 32.1, Towns % (Auto) 12.4 H, Eos % (Auto) 3.3, Baso % (Auto) 0.9, Absolute Neuts (auto) 2.4, Absolute Lymphs (auto) 1.48, Nucleated RBC % 0, Sodium 138, Potassium 4.1, Chloride 107, Carbon Dioxide 27.0, Anion Gap 4 L, BUN 10, Creatinine 0.82, Estim Creat Clear Calc 62.37, Est GFR (MDRD) Af Amer 91, Est GFR (MDRD) Non-Af 75, BUN/Creatinine Ratio 12.2, Glucose 121 H, Hemoglobin A1c 6.7 H, Calcium 8.9, Total Bilirubin 0.70, AST 38 H, ALT 36, Alkaline Phosphatase 55, Total Protein 7.7, Albumin 3.5, Globulin 4.2, Albumin/Globulin Ratio 0.8 L, Triglycerides 157, Cholesterol 218 H, LDL Cholesterol 124, VLDL Cholesterol 31, HDL Cholesterol 63, TSH 2.34 12/30/22 11:27: POC Glucose 170 H Radiography Diagnostic Testing: Radiology Impression Brain MRI 12/29/22 15:14 IMPRESSION: Minor periventricular white matter ischemic change without evidence for acute infarct.. No evidence for brain metastases Electronically Signed: Manny Solo MD at 18:03 EDT , Echocardiogram 12/29/22 15:14 Interpretation Summary Normal LV size. Left ventricular systolic function is normal. The estimated ejection fraction is 60 %. Mild concentric left ventricular hypertrophy. Stage 1 diastolic dysfunction. Bubble contrast study negative for right to left interatrial shunt. The global longitudinal strain is mildly abnormal. The global longitudinal strain = -15.8% (abnormal). Ordering Physician: Laura Chappell Referring Physician: Mariya Penn Performed By: Christina Reyes, RDCS, RVT Head/Neck CTA 12/29/22 18:25 IMPRESSION: Minor atherosclerotic changes of the head and neck No hemodynamically significant stenosis or vascular occlusion Electronically Signed: Manny Solo MD at 18:47 EDT , ADDENDUM: 12/29/22 1856 IMPRESSION: Minor atherosclerotic changes of the head and neck No hemodynamically significant stenosis or vascular occlusion N.B. : The above Results were Read Back by Manny Solo MD to Fabiano Galloway RN, and understanding confirmed on 12/29/2022 18:49:43 (ET). Electronically Signed: Manny Solo MD at 18:47 EDT , D/C Instructions Discharge Diet: No restrictions Call your doctor if you observe: Fever of 101 or Higher, Shortness of breath, Dizziness, Fainting spells, Swelling in the ankles, Chest pain and Increased palpitations (irregular heartbeat) Meaningful Use Info Meaningful Use Diagnoses (Choose all that apply): None applicable Discharge Plan Admission Admit Date/Time: 12/29/22 15:07 Attending Provider: Kotsonis,Carlos F Primary Care Provider: Mariya Penn Consulting Providers: Laura Chappell Instructions Additional Instructions / Restrictions: Follow-up with your oncologist next week, neuropathy and paresthesia that you are feeling could be a side effect of your previous chemotherapy as well as her current anastrozole Discharge Orders/Prescriptions Prescriptions: Continued metformin 500 mg tablet extended release 24 hr 500 mg PO DAILY Patient Comments: TAKE 1 TABLET BY MOUTH EVERY DAY WITH BREAKFAST anastrozole 1 mg tablet 1 mg PO DAILY Referrals / Follow Up: Mariya Penn MD [Primary Care Provider] - Within 1 Week Aroldo Koch MD [Med Staff - Active Staff] - Within 1 Week Disposition Disposition (needs filled in before D/C Order can be placed): Home, Self Care Charges/Coding Visit Charges Inpatient E&M: 51903 Disch Hosp >30min
[2023-01-01 08:58] LABS: Vitamin B12 1692 pg/mL (211-911)
== END 2022-12-30 08:25 | disposition home or self-care (01) ==
LOC: ED 11:56 → PCU 15:31
PROVIDERS: Admitting Provider Internal Medicine; Emergency Provider Emergency Medicine; PCP Internal Medicine; Visit Provider Family Medicine
DX: R20.0 Anesthesia of skin (principal); E11.40 Type 2 diabetes mellitus with diabetic neuropathy, unspecified; R29.810 Facial weakness; Z79.84 Long term (current) use of oral hypoglycemic drugs; Z79.811 Long term (current) use of aromatase inhibitors; I10 Essential (primary) hypertension; R20.2 Paresthesia of skin; Z85.3 Personal history of malignant neoplasm of breast
CPT/HCPCS: 36415; 36591; 70450; 70496; 70498; 70553; 71045; 80048; 80053; 80061; 81001; 82607; 82962; 83036; 84443; 85025; 85610; 92522; 93005; 93306; 94762; 96374; 99221; 99285; A9575; J7030; Q9967; A4216; G0378